=== PATIENT | female | born 1955 | race African-American/Black ===

== ENCOUNTER → 2016-08-01 | Outpatient (CLI) | payer MEDICARE, MEDICAID | LOC: OD 12:09 | PROVIDERS: ATTEND Family Medicine | DX: R05 Cough (principal) | CPT/HCPCS: 71020 ==

== ENCOUNTER → 2016-08-17 | Outpatient (CLI) | payer MEDICARE, MEDICAID | LOC: OD 12:31 | PROVIDERS: ATTEND Nurse Practitioner Acute Care | DX: R09.89 Other specified symptoms and signs involving the circulatory and respiratory systems (principal) | CPT/HCPCS: 71020 ==

== ENCOUNTER 2016-08-28 08:33 | Day surgery (SDC) | payer MEDICARE, MEDICAID ==
[~2016-08-28 08:33] MED LIST: PROPOFOL INJ 200 MG/20 ML VIAL IV ONE
[2016-08-28 10:33] VITALS: BP 138/78
--- NOTE | 2016-08-28 12:57 | Operative Report ---
Operative Report DATE OF SURGERY: 08/28/16 Operative Report: The risks, benefits and alternatives of the procedure including risks of bleeding, perforation requiring surgery are explained to the patient detail and informed consent is obtained. Patient is brought back to the endoscopy suite. Patient is placed in a left lateral decubital position. A timeout is called. Propofol medication is administered. A rectal examination was done which did not reveal any masses, tears or fissures. An Olympus videoscope was inserted into the patient's rectum. The scope was then carefully advanced all the way to the cecum. The cecum as identified by the usual anatomical landmarks including the ileocecal valve as well as the appendiceal office. Photodocumentation was obtained. Prep is good. The scope was then sequentially pulled back via the various segments of the colon including the ascending colon, hepatic flexure, transverse colon, splenic flexure, descending colon and finally into the rectosigmoid portions of the colon. Retroflexion maneuvers performed. PREOPERATIVE DIAGNOSIS: Heme-positive stools. Change of bowel habits POSTOPERATIVE DIAGNOSIS: Mild right-sided inflammation status post biopsy. Internal hemorrhoids OPERATION: Colonoscopy with biopsy SURGEON: BARBER SHANKS ANESTHESIA: LMAC TISSUE REMOVED OR ALTERED: Right-sided specimens obtained to rule out for lymphocytic, endoscopic, collagenous colitis. COMPLICATIONS: None. ESTIMATED BLOOD LOSS: none. INTRAOPERATIVE FINDINGS: Described above. No evidence of AVMs, diverticulosis. PROCEDURE: Patient tolerated procedure well. No immediate postprocedure complications are noted. Patient is discharged in good condition. Discharge date 08/28/2016. Discharge diet: Regular. Discharge activity: Regular. Patient is instructed to call the office or proceed to the emergency room if there are any postprocedure issues. Patient does have a 2-3 week follow-up to discuss findings. Once biopsies are available I'll call the patient to update her.
--- NOTE | 2016-08-28 12:57 | Operative Report ---
Operative Report DATE OF SURGERY: 08/28/16 PREOPERATIVE DIAGNOSIS: Heme-positive stools. Change of bowel habits POSTOPERATIVE DIAGNOSIS: Mild right-sided inflammation status post biopsy. Internal hemorrhoids OPERATION: Colonoscopy with biopsy SURGEON: BARBER SHANKS ANESTHESIA: LMAC TISSUE REMOVED OR ALTERED: Right-sided specimens obtained to rule out for lymphocytic, endoscopic, collagenous colitis. ESTIMATED BLOOD LOSS: none. INTRAOPERATIVE FINDINGS: Described above. No evidence of AVMs, diverticulosis.
== END 2016-08-28 10:30 | disposition home or self-care (01) ==
LOC: END 08:33
PROVIDERS: ATTEND Internal Medicine Gastroenterology
PROC: 0DBF8ZX Excision of Right Large Intestine, Via Natural or Artificial Opening Endoscopic, Diagnostic (ICD-10-PCS; principal; 2016-08-28 10:00)
DX: R19.5 Other fecal abnormalities (principal); E11.9 Type 2 diabetes mellitus without complications; I10 Essential (primary) hypertension; K52.9 Noninfective gastroenteritis and colitis, unspecified; Z88.5 Allergy status to narcotic agent; Z79.899 Other long term (current) drug therapy; Z79.52 Long term (current) use of systemic steroids; Z87.891 Personal history of nicotine dependence
CPT/HCPCS: 45380; 88305 ×2; J2704; 810

== ENCOUNTER → 2016-10-20 | Outpatient (CLI) | payer MEDICAID, MEDICARE | LOC: RAD 08:41 | PROVIDERS: ATTEND Surgery | DX: R10.84 Generalized abdominal pain (principal); Z87.11 Personal history of peptic ulcer disease | CPT/HCPCS: 74249 ==

== ENCOUNTER 2017-03-13 05:25 | Day surgery (SDC) | payer MEDICARE ==
--- NOTE | 2017-03-06 11:19 | RADIOLOGY REPORT (SQ) ---
EXAM DESCRIPTION: CHEST PA/LATERAL COMPLETED DATE/TIME: 03/06/2017 11:07 am REASON FOR STUDY: PRE-OP COMPARISON: 08/17/2016 NUMBER OF VIEWS: Two view. TECHNIQUE: Frontal and lateral radiographic views of the chest acquired. LIMITATIONS: None. FINDINGS: LUNGS AND PLEURA: No opacities, masses or pneumothorax. No pleural effusion. MEDIASTINUM AND HILAR STRUCTURES: No masses or contour abnormalities. HEART AND VASCULATURE: Heart normal size. No evidence for failure. BONY STRUCTURES: No acute findings. HARDWARE: None. OTHER: No other significant finding. IMPRESSION: NO SIGNIFICANT RADIOGRAPHIC FINDING IN THE CHEST. TECHNICAL DOCUMENTATION: JOB ID: [id number] [employer]- All Rights Reserved
[2017-03-06 11:20] LABS: APPEARANCE,URINE SLIGHTLY-CLOUDY; BILIRUBIN,URINE NEGATIVE (NEGATIVE); GLUCOSE, URINE NEGATIVE (NEGATIVE); KETONES,URINE TRACE mg/dL (NEGATIVE); LEUKOCYTE ESTERASE,URINE NEGATIVE (NEGATIVE); NITRITE,URINE NEGATIVE (NEGATIVE); PROTEIN,URINE 30 mg/dL (NEGATIVE); URINE SPECIFIC GRAVITY 1.024; UROBILINOGEN,URINE NEGATIVE mg/dL (<2.0)
[2017-03-06 11:22] LABS: HEMATOCRIT 36.6 % (36.0-47.0); HEMOGLOBIN 11.7 g/dL (12.0-15.5); HGB HCT DIFFERENCE -1.5; MEAN CORPUSCULAR HEMOGLOBIN 28.4 pg (27.0-33.4); MEAN CORPUSCULAR VOLUME 89 fl (80-97); RED BLOOD COUNT 4.13 10^6/uL (3.72-5.28); RED CELL DISTRIBUTION WIDTH 20.4 % (11.5-14.0)
[2017-03-06 11:28] LABS: PROTHROMBIN TIME 11.9 SEC (11.4-15.4)
[2017-03-06 11:29] LABS: PARTIAL THROMBOPLASTIN TIME 27.9 SEC (23.5-35.8)
[2017-03-06 11:44] LABS: ALANINE AMINOTRANSFERASE 30 U/L (9-52); ALKALINE PHOSPHATASE 95 U/L (38-126); ANION GAP 7 (5-19); ASPARTATE AMINO TRANSFERASE 44 U/L (14-36); BILIRUBIN,DIRECT 0.4 mg/dL (0.0-0.4); BILIRUBIN,TOTAL 0.5 mg/dL (0.2-1.3); BLOOD UREA NITROGEN 8 mg/dL (7-20); CALCIUM 9.5 mg/dL (8.4-10.2); CARBON DIOXIDE 29 mmol/L (22-30); CHLORIDE 108 mmol/L (98-107); CREATININE RESULT 0.69 mg/dL (0.52-1.25); GLUCOSE 78 mg/dL (75-110); POTASSIUM 3.6 mmol/L (3.6-5.0); TOTAL PROTEIN 6.9 g/dL (6.3-8.2)
[2017-03-06 13:14] LABS: ANISOCYTOSIS 2+; BASOPHILS % (MANUAL) 0 % (0-2); EOSINOPHILS % (MANUAL) 1 % (0-6); HYPOCHROMASIA 2+; LYMPHOCYTES % (MANUAL) 46 % (13-45); OVALOCYTES 2+; POIKILOCYTOSIS 2+; POLYCHROMASIA SLIGHT; TOTAL CELLS COUNTED 100
--- NOTE | 2017-03-06 21:05 | EKG REPORT ---
SEVERITY:- NORMAL ECG - SINUS RHYTHM : Confirmed by: Shelley Vargas 06-Mar-2017 21:04:52
[~2017-03-13 05:25] MED LIST changes: +CEFAZOLIN 2 GM/D5W RTU 2 GM/50 ML RTUPB IV PRN; +LACTATED RINGERS 1000 ML IV PRN; +LIDOCAINE 0.5% INJ-PF (5 MG/ML) 50 ML SDV SUBCUT PRN; -PROPOFOL INJ 200 MG/20 ML VIAL IV ONE
[2017-03-13] MEDS ORDERED: BUPIVACAINE HCL 0.5 % INJ/PF 30 ML SDV ONE (06:45)
[2017-03-13] MEDS ORDERED: MIDAZOLAM 2 MG/2 ML INJ ONE (06:48)
[2017-03-13] MEDS ORDERED: FENTANYL CITRATE INJ/PF 250 MCG/5 ML AMPULE ONE (06:48)
[2017-03-13] MEDS ORDERED: PROPOFOL INJ 200 MG/20 ML VIAL IV ONE (06:49)
[2017-03-13] MEDS ORDERED: ALBUTEROL SULFATE 0.083% NEB 2.5 MG/3 ML AMPUL NEB ONE (07:14)
[2017-03-13] MEDS ORDERED: LIDOCAINE 1% INJ-PF (10 MG/ML) 30 ML SDV ONE (07:21)
[2017-03-13] MEDS ORDERED: MORPHINE SULFATE 10 MG/ML INJ ONE (07:28)
[2017-03-13] MEDS ORDERED: FENTANYL CITRATE INJ/PF 100 MCG/2 ML AMPUL IV PRN ×3 (08:09)
[2017-03-13] MEDS ORDERED: ONDANSETRON HCL INJ/PF 4 MG/2 ML SDV IV PRN (08:40)
[2017-03-13] MEDS ORDERED: MORPHINE SULFATE 10 MG/ML INJ IV PRN (08:40)
--- NOTE | 2017-03-13 08:40 | PDOC DISCHARGE SUMMARY ---
Discharge Summary (SDC) - Discharge Final Diagnosis: Right carpal tunnel syndrome Right cubital tunnel syndrome Date of Surgery: 03/13/17 Discharge Date: 03/13/17 Condition: Good Treatment or Instructions: Schedule Follow Up w/ Dr. Simon Cotto @ [facility] for Surgery to be seen in 10-14 days or as scheduled [place]: [place]: [place]: May remove dressing on postop day #3, keep incision covered and dry. Ice and elevate May begin finger range of motion attempting to make full fist. Stool softener of choice when on pain medication. Prescriptions: Oxycodone HCl 5 mg PO Q6 PRN #30 tablet PRN Reason: Referrals: ASHELY BOOGIE MD [Primary Care Provider] - Discharge Diet: As Tolerated Respiratory Treatments at Home: Deep Breathing/Coughing, Incentive Spirometer Discharge Activity: No Lifting Over 10 Pounds, No Lifting/Push/Pulling Report the Following to Your Physician Immediately: Fever over 101 Degrees, Unusual Bleeding, Redness, Swelling, Warmth, Increased Soreness
--- NOTE | 2017-03-13 08:40 | Operative Report ---
Operative Report DATE OF SURGERY: 03/13/17 PREOPERATIVE DIAGNOSIS: Right Carpal/Cubital Tunnel Synrome POSTOPERATIVE DIAGNOSIS: Same OPERATION: Endoscopic Right Carpal Tunnel Release. Right In Situ Cubital Tunnel Release SURGEON: ARDEN ELIZONDO ANESTHESIA: GA COMPLICATIONS: None ESTIMATED BLOOD LOSS: Minimal PROCEDURE: Indication for above procedure: 61-year-old female with history of numbness and tingling the right upper extremity. Patient was seen at my office which point we discussed findings on neurodiagnostic testing and treatment options. Patient attempted conservative measures without resolution of her symptoms. At that point joint decision was made to proceed with operative intervention. Risks and benefits were explained patient verbalized understanding consented for the procedure. Procedure In Detail: Procedure In Detail: Patient was seen and evaluated in the preoperative holding area. The RIGHT upper extremity was initialized and marked. Patient received 2g of Ancef IV for bacterial prophylaxis. Patient was taken back to the operative room where transferred to the operative table and placed under general anesthesia. Once they were adequately anesthetized a nonsterile tourniquet was placed on the upper extremity. A surgical team debriefing was performed ensuring all instrumentation was available, the surgical procedure was discussed with possible concerns reviewed. The upper extremity was prepped with chlorhexidine and alcohol and draped in a sterile fashion. A timeout was done identifying correct patient, procedure and extremity everyone in attendance agree with this and verbalized no concerns. The extremity was exsanguinated the tourniquet was inflated to 250 mmHg. A transverse skin incision was made just proximal to the wrist flexion crease ulnar to the palmaris longus. Blunt dissection was performed down to the palmaris longus tendon which was retracted radially. Deep to the palmaris longus tendon was the volar carpal ligament this was incised identifying the median nerve deep. With the use of a Heath elevator any soft tissue/synovium was freed from the undersurface of the transverse carpal ligament. The hook of hamate was identified ulnarly. The ConMed cannulas were then introduced beginning with #1 progressing to a #3 gently dilating the carpal canal. I then introduced the scope within the cannula and identified transverse carpal ligament ensuring the median nerve was not visualized within the cannula. I triangulated distally with a 25-gauge needle identifying the distal aspect of the transverse carpal ligament, to ensure protection of the superficial palmar arch. The arthroscopic knife was used to incise the transverse carpal ligament under direct visualization with the arthroscopic camera. Any excess transverse fibers that remained after the first past were carefully released with a repeat pass. The median nerve was then directly visualized radially without disruption. Once this was completed I placed the #3 dilator and assured I got complete release of the transverse carpal ligament without residual compression. The median nerve was directly visualized and free of any overlying compression. I then turned my attention to release of the volar antebrachial fascia proximally. Once again a Heath was used to open the wound and I proceeded with cannula #1 to #3. The arthroscope was introduced into the cannula and under direct visualization the volar antebrachial fascia was released. Once this was complete I copiusly irrigated the wound with normal saline. Skin incision was closed with a running subcuticular 4-0 Monocryl reinforced with Dermabond and Steri-Strips. I then turned my attention the cubital tunnel release. A longitudinal skin incision was made centered over the cubital tunnel. Careful dissection was done through the overlying soft tissues any peripheral vasculature was carefully coagulated with bipolar cautery. The branches of the medial antebrachial cutaneous nerve were identified and protected throughout the entirety of the case. Once within the confines of the cubital tunnel the ulnar nerve was identified at the proximal aspect of the wound. At this level I carefully released a medial portion of the triceps and the medial intermuscular septum freeing the ulnar nerve proximally of any overlying soft tissue compression. At the level of Osbornes fascia there was significant compression w/ hourglass appearance of the ulnar nerve. The FCU aponeurosis between the 2 heads of the FCU muscle approximately 4cm of the fascia was released relieving any external compression from the ulnar nerve distally to the level of the first motor branch. I then freed up the nerve posteriorly ensuring there is no remaining soft tissue bands of tissue causing compression. During dissection of the nerve careful attention was directed at avoiding disruption of the ulnar nerve blood supply. Elbow range of motion was then done from full flexion to full extension with full flexion there was no evidence of anterior subluxation of the ulnar nerve from the groove. Thus I determined patient would not require anterior subcutaneous ulnar nerve transposition The tourniquet was then deflated. Compression was made to the wound for 2 minutes. I then identified any peripheral bleeding and carefully coagulated with bipolar cautery. The wound was then irrigated with normal saline. Subcutaneous tissues were closed with interrupted 3-0 Monocryl. Skin was closed a running subcuticular 4-0 Monocryl reinforced with Dermabond and Steri- Strips. Wounds dressed with 4 x 4's, ABD and soft bandage Sponge counts, instrument counts, needle counts counts were correct. Patient was then awoken from anesthesia. Transferred from the operating room table to the operating room stretcher. There was no intraoperative complications patient tolerated procedure well stable to PACU. Postoperative plan: Patient will follow-up in the office as scheduled which point we will proceed with wound check. She may begin gentle range of motion exercises but avoid any heavy lifting at her first postoperative appointment.
[2017-03-13] MEDS: FENTANYL CITRATE INJ/PF 100 MCG/2 ML AMPUL ONE ×4 (08:49→09:06)
[2017-03-13 11:24] VITALS: BP 149/81
[2017-03-13] MEDS ORDERED: ONDANSETRON HCL INJ/PF 4 MG/2 ML SDV ONE (13:26)
[2017-03-13] MEDS ORDERED: SUCCINYLCHOLINE CHLORIDE INJ 200 MG/10 ML VIAL ONE (13:26)
[2017-03-13] MEDS ORDERED: DEXAMETHASONE SOD PHOSPHATE INJ 4 MG/1 ML VIAL ONE (13:26)
[2017-03-13] MEDS ORDERED: GLYCOPYRROLATE INJ 0.4 MG/2 ML VIAL ONE (13:26)
[2017-03-13] MEDS ORDERED: PHENYLEPHRINE HCL INJ/PF 10 MG/1 ML SDV ONE (13:26)
[2017-03-13] MEDS ORDERED: LIDOCAINE 2% INJ-PF (20 MG/ML) 10 ML AMPUL ONE (13:26)
== END 2017-03-13 11:00 | disposition home or self-care (01) ==
LOC: OROUT 05:25
PROVIDERS: ATTEND Orthopaedic Surgery
PROC: 01N54ZZ Release Median Nerve, Percutaneous Endoscopic Approach (ICD-10-PCS; principal; 2017-03-13 07:30)
PROC: 01N40ZZ Release Ulnar Nerve, Open Approach (ICD-10-PCS; 2017-03-13 07:30)
DX: G56.01 Carpal tunnel syndrome, right upper limb (principal); G56.21 Lesion of ulnar nerve, right upper limb; F17.210 Nicotine dependence, cigarettes, uncomplicated; I10 Essential (primary) hypertension; M19.90 Unspecified osteoarthritis, unspecified site; Z79.01 Long term (current) use of anticoagulants; Z88.5 Allergy status to narcotic agent; Z79.899 Other long term (current) drug therapy; Z79.1 Long term (current) use of non-steroidal anti-inflammatories (NSAID); Z86.79 Personal history of other diseases of the circulatory system; Z86.39 Personal history of other endocrine, nutritional and metabolic disease
CPT/HCPCS: 93005; 36415; 82962; 85025; 85610; 85730; 80076; 80048; 81001; 71020; 93010; 29848; 64718; J2250; J1100; J3010 ×2; J2270; J2370; J0330; J2405; J2704; J3490; A9270; J0690; 1810

== ENCOUNTER 2018-07-23 09:38 | Emergency (ER) | payer MEDICARE, MEDICAID ==
--- NOTE | 2018-07-23 09:56 | ER Document Report ---
ED Medical Screen (RME) - General Chief Complaint: Fall Injury Stated Complaint: FALL Time Seen by Provider: 07/23/18 09:53 Notes: RAPID MEDICAL EVALUATION DISCLOSURE I have seen this patient as part of a Rapid Medical Evaluation and, if applic able, placed any initially appropriate orders. The patient will be seen and fully evaluated, including a full history and physical exam, by a provider (in Main ED or Fast Track) when a room becomes available. 63-year-old female here with complaints of frequent right-sided headaches ongoing for the past several weeks. She has also had generalized weakness, "legs giving out on me", trembling of her whole body, and frequent falls over the past 1 month. She reports having fallen down 3 times in the past 1 month. Her last fall was yesterday. She does not know why she keeps falling. She does not have any syncope that leads to the falls. She denies any chest pain shortness of breath. From yesterday's fall, she does complain of some left chest wall pain, left hip pain, left knee pain. EXAM Mild left lateral chest wall TTP Mild left lateral hip TTP No appreciable left knee TTP Strength 5/5 with intact sensation all extremities FNF cerebellar intact TRAVEL OUTSIDE OF THE [place] IN LAST 30 DAYS: No - Related Data Allergies/Adverse Reactions: acetaminophen [From Ultracet] Allergy (Severe, Verified 03/12/17 08:24) Hives codeine phosphate [From Codeine Phosphate Soluble] Allergy (Severe, Verified 03/06/17 09:17) Respiratory distress hydrocodone [Hydrocodone] Allergy (Severe, Verified 03/06/17 09:17) Hives hydromorphone HCl [From Dilaudid] Allergy (Severe, Verified 03/06/17 09:17) Anaphylaxis oxycodone HCl [From Percocet] Allergy (Severe, Verified 03/06/17 09:17) Hives tramadol [From Ultracet] Allergy (Severe, Verified 03/12/17 08:24) Hives tramadol HCl [From Ultram] Allergy (Severe, Verified 03/06/17 09:17) Hives valdecoxib [From Bextra] Allergy (Severe, Verified 03/06/17 09:17) Hives nalbuphine HCl [From Nubain] Allergy (Intermediate, Verified 03/06/17 09:17) Hives bee stings Allergy (Severe, Uncoded 03/12/17 08:24) Hives Past Medical History - Past Medical History Cardiac Medical History: Denies: Hx Coronary Artery Disease, Hx Heart Attack, Hx Hypertension, Hx Pulmonary Embolism Pulmonary Medical History: Denies: Hx Asthma, Hx Bronchitis, Hx COPD - DOES NOT HAVE ANYMORE, Hx Pneumonia, Hx Respiratory Failure, Hx Sleep Apnea, Hx Tuberculosis Neurological Medical History: Reports: Hx Migraine. Denies: Hx Cerebrovascular Accident, Hx Seizures Endocrine Medical History: Denies: Hx Diabetes Mellitus Type 2, Hx Graves' Disease, Hx Hyperthyroidism, Hx Hypothyroidism Malignancy Medical History: Denies: Hx Lung Cancer GI Medical History: Reports: Hx Gastroesophageal Reflux Disease, Hx Hepatitis, Hx Hiatal Hernia, Hx Ulcer. Denies: Hx Crohn's Disease, Hx Irritable Bowel, Hx Liver Failure, Hx Pancreatitis Musculoskeltal Medical History: Reports Hx Arthritis - RHEUMATOID, Denies Hx Fibromyalgia, Denies Hx Muscular Dystrophy Psychiatric Medical History: Reports: Hx Depression Denies: Hx Bipolar Disorder, Hx Post Traumatic Stress Disorder, Hx Schizophrenia Traumatic Medical History: Denies: Hx Fractures Infectious Medical History: Reports: Hx Hepatitis Past Surgical History: Reports: Hx Abdominal Surgery - gastric bypass and then reversal, feeding tube placement x2, Hx Cholecystectomy, Hx Gastric Bypass Surgery - reversal of gastric bypass, Hx Hysterectomy, Hx Orthopedic Surgery - bilat knee, Hx Tonsillectomy, Hx Tubal Ligation. Denies: Hx Bowel Surgery, Hx Section, Hx Colostomy, Hx Coronary Artery Bypass Graft, Hx Herniorrhaphy, Hx Mastectomy, Hx Pacemaker - Immunizations Hx Diphtheria, Pertussis, Tetanus Vaccination: - Unsure Physical Exam - Vital signs Vitals: Temp Pulse Resp BP Pulse Ox 99.2 F 97 18 127/71 H 98 07/23/18 09:46 07/23/18 09:46 07/23/18 09:46 07/23/18 09:46 07/23/18 09:46 Course - Vital Signs Vital signs: Temp Pulse Resp BP Pulse Ox 99.2 F 97 18 127/71 H 98 07/23/18 09:46 07/23/18 09:46 07/23/18 09:46 07/23/18 09:46 07/23/18 09:46 Doctor's Discharge - Discharge Referrals: CANDICE ZUÑIGA PA-C [Primary Care Provider] - Follow up as needed
--- NOTE | 2018-07-23 10:17 | RADIOLOGY REPORT (SQ) ---
EXAM DESCRIPTION: CT HEAD WITHOUT COMPLETED DATE/TIME: 07/23/2018 10:06 am REASON FOR STUDY: frequent falls COMPARISON: 05/08/2013. TECHNIQUE: Axial images acquired through the brain without intravenous contrast. Images reviewed wi th bone, brain and subdural windows. Additional sagittal and coronal reconstructions were generated. Images stored on PACS. All CT scanners at this facility use dose modulation, iterative reconstruction, and/or weight based d osing when appropriate to reduce radiation dose to as low as reasonably achievable (ALARA). [facility]: Dose Right [facility]: CareDose [facility]: Dose Right [facility]: Teradose 4D [facility]: [place] RADIATION DOSE: CT Rad equipment meets quality standard of care and radiation dose reduction techniq ues were employed. CTDIvol: 53.2 mGy. DLP: 1044 mGy-cm. mGy. LIMITATIONS: None. FINDINGS: VENTRICLES: Normal size and contour. CEREBRUM: No masses. No hemorrhage. No midline shift. No evidence for acute infarction. Normal gra y/white matter differentiation. No areas of low density in the white matter. CEREBELLUM: No masses. No hemorrhage. No alteration of density. No evidence for acute infarction. EXTRAAXIAL SPACES: No fluid collections. No masses. ORBITS AND GLOBE: No intra- or extraconal masses. Normal contour of globe without masses. CALVARIUM: No fracture. PARANASAL SINUSES: No fluid or mucosal thickening. SOFT TISSUES: No mass or hematoma. OTHER: No other significant finding. IMPRESSION: NORMAL BRAIN CT WITHOUT CONTRAST. EVIDENCE OF ACUTE STROKE: NO. COMMENT: Quality ID # [id number]: Final reports with documentation of one or more dose reduction techniques (e.g., Automated exposure control, adjustment of the mA and/or kV according to patient size, use of iterative reconstruction technique) TECHNICAL DOCUMENTATION: JOB ID: [id number] [employer]- All Rights Reserved Reading location - IP/workstation name: [email or web address]
--- NOTE | 2018-07-23 10:24 | RADIOLOGY REPORT (SQ) ---
EXAM DESCRIPTION: HIP LEFT AP/LATERAL COMPLETED DATE/TIME: 07/23/2018 10:11 am REASON FOR STUDY: fall, L hip pain COMPARISON: None. NUMBER OF VIEWS: Two views. TECHNIQUE: AP pelvis and additional frog-leg view of the left hip. LIMITATIONS: None. FINDINGS: MINERALIZATION: Normal. LEFT HIP: No fracture or dislocation. No worrisome bone lesions. RIGHT HIP: No fracture or dislocation. No worrisome bone lesions. PUBIS AND ISCHIUM: No fracture. PELVIS: No fracture. SACRUM: No fracture or dislocation. No worrisome bone lesions. LOWER LUMBAR SPINE: No fracture or dislocation. No worrisome bone lesions. No significant disc disea se. SOFT TISSUES: No findings. OTHER: No other significant finding. IMPRESSION: NEGATIVE STUDY OF THE LEFT HIP AND PELVIS. NO RADIOGRAPHIC EVIDENCE OF ACUTE INJURY. TECHNICAL DOCUMENTATION: JOB ID: [id number] [employer]- All Rights Reserved Reading location - IP/workstation name: [email or web address]
--- NOTE | 2018-07-23 10:25 | RADIOLOGY REPORT (SQ) ---
EXAM DESCRIPTION: CHEST 2 VIEWS COMPLETED DATE/TIME: 07/23/2018 10:11 am REASON FOR STUDY: freq falls, L chest wall pain COMPARISON: 07/22/2015. EXAM PARAMETERS: NUMBER OF VIEWS: two views TECHNIQUE: Digital Frontal and Lateral radiographic views of the chest acquired. RADIATION DOSE: NA LIMITATIONS: none FINDINGS: LUNGS AND PLEURA: No opacities, masses or pneumothorax. No pleural effusion. MEDIASTINUM AND HILAR STRUCTURES: No masses or contour abnormalities. HEART AND VASCULAR STRUCTURES: Heart normal size. No evidence for failure. BONES: No acute findings. HARDWARE: Clips in the upper abdomen. OTHER: No other significant finding. IMPRESSION: NO ACUTE RADIOGRAPHIC FINDING IN THE CHEST. TECHNICAL DOCUMENTATION: JOB ID: [id number] [employer]- All Rights Reserved Reading location - IP/workstation name: [email or web address]
[2018-07-23 10:34] LABS: ABSOLUTE LYMPHOCYTES (AUTO) 2.6 10^3/uL (0.5-4.7); ABSOLUTE MONOCYTES (AUTO) 0.6 10^3/uL (0.1-1.4); BASOPHILS % (AUTO) 0.3 % (0-2); EOSINOPHILS % (AUTO) 0.7 % (0-6); HEMATOCRIT 32.9 % (36.0-47.0); HEMOGLOBIN 10.6 g/dL (12.0-15.5); LYMPHOCYTES % (AUTO) 42.3 % (13-45); MEAN CORPUSCULAR HEMOGLOBIN 26.4 pg (27.0-33.4); MEAN CORPUSCULAR HGB CONC 32.3 g/dL (32.0-36.0); MEAN CORPUSCULAR VOLUME 82 fl (80-97); MONOCYTES % (AUTO) 9.3 % (3-13); PLATELET COUNT 316 10^3/uL (150-450); RED BLOOD COUNT 4.02 10^6/uL (3.72-5.28); RED CELL DISTRIBUTION WIDTH 19.8 % (11.5-14.0); SEGMENTED NEUTROPHILS % (AUTO) 47.4 % (42-78); TOTAL CELLS COUNTED % (AUTO) 100 %; WHITE BLOOD COUNT 6.2 10^3/uL (4.0-10.5)
[2018-07-23] MEDS ORDERED: NORMAL SALINE 500 ML IV ONE (10:42)
[2018-07-23] MEDS ORDERED: ONDANSETRON HCL INJ/PF 4 MG/2 ML SDV IV ONE (10:43)
[2018-07-23] MEDS ORDERED: PROCHLORPERAZINE EDISYLATE INJ 10 MG/2 ML VIAL IV ONE (10:43)
[2018-07-23 10:51] LABS: APPEARANCE,URINE SLIGHTLY-CLOUDY; BILIRUBIN,URINE SMALL (NEGATIVE); GLUCOSE, URINE NEGATIVE (NEGATIVE); KETONES,URINE TRACE mg/dL (NEGATIVE); LEUKOCYTE ESTERASE,URINE TRACE (NEGATIVE); NITRITE,URINE NEGATIVE (NEGATIVE); PROTEIN,URINE 30 mg/dL (NEGATIVE); URINE SPECIFIC GRAVITY 1.028
[2018-07-23 10:56] LABS: ALANINE AMINOTRANSFERASE 11 U/L (9-52); ALKALINE PHOSPHATASE 102 U/L (38-126); ANION GAP 5 (5-19); ASPARTATE AMINO TRANSFERASE 39 U/L (14-36); BILIRUBIN,DIRECT 0.3 mg/dL (0.0-0.4); BILIRUBIN,TOTAL 0.4 mg/dL (0.2-1.3); BLOOD UREA NITROGEN 8 mg/dL (7-20); CALCIUM 9.6 mg/dL (8.4-10.2); CARBON DIOXIDE 26 mmol/L (22-30); CHLORIDE 112 mmol/L (98-107); GLUCOSE 48 mg/dL (75-110); POTASSIUM 4.3 mmol/L (3.6-5.0); SODIUM 143.3 mmol/L (137-145); TOTAL PROTEIN 7.3 g/dL (6.3-8.2)
[2018-07-23 11:00] LABS: COLOR,URINE DARK YELLOW
--- NOTE | 2018-07-23 12:59 | EKG REPORT ---
SEVERITY:- NORMAL ECG - SINUS RHYTHM : Confirmed by: Rk Mendoza MD 23-Jul-2018 12:58:30
--- NOTE | 2018-07-23 13:27 | ER Document Report ---
ED General - General Chief Complaint: Fall Injury Stated Complaint: FALL Time Seen by Provider: 07/23/18 09:53 TRAVEL OUTSIDE OF THE [place] IN LAST 30 DAYS: No - HPI Patient complains to provider of: Multiple falls multiple complaints Notes: Patient coming in for multiple falls and multiple complaints patient states a history of dizziness weakness states intermittent falls over the last month patient states apparently has fallen 3 times. Patient states last time she is falling was day prior to yesterday states that she was standing up felt her legs get weak and and did fall into the ground patient states that she hit her head. Patient also complains of a fall a few weeks prior stating again that her legs give out. Patient otherwise denies any new medications denies any fevers chills nausea vomiting diarrhea denies any recent travel denies any chest pain or abdominal pain. Patient is resting comfortably upon my evaluation. Patient states that she has had a history of GI bypass surgery with a reversal due to complications patient states ever since that time she has had multiple medical issues. Patient was seen by the triage provider whose note is provided below 63-year-old female here with complaints of frequent right-sided headaches ongoing for the past several weeks. She has also had generalized weakness, "legs giving out on me", trembling of her whole body, and frequent falls over the past 1 month. She reports having fallen down 3 times in the past 1 month. Her last fall was yesterday. She does not know why she keeps falling. She does not have any syncope that leads to the falls. She denies any chest pain shortness of breath. From yesterday's fall, she does complain of some left chest wall pain, left hip pain, left knee pain. - Related Data Allergies/Adverse Reactions: acetaminophen [From Ultracet] Allergy (Severe, Verified 03/12/17 08:24) Hives codeine phosphate [From Codeine Phosphate Soluble] Allergy (Severe, Verified 03/06/17 09:17) Respiratory distress hydrocodone [Hydrocodone] Allergy (Severe, Verified 03/06/17 09:17) Hives hydromorphone HCl [From Dilaudid] Allergy (Severe, Verified 03/06/17 09:17) Anaphylaxis oxycodone HCl [From Percocet] Allergy (Severe, Verified 03/06/17 09:17) Hives tramadol [From Ultracet] Allergy (Severe, Verified 03/12/17 08:24) Hives tramadol HCl [From Ultram] Allergy (Severe, Verified 03/06/17 09:17) Hives valdecoxib [From Bextra] Allergy (Severe, Verified 03/06/17 09:17) Hives nalbuphine HCl [From Nubain] Allergy (Intermediate, Verified 03/06/17 09:17) Hives bee stings Allergy (Severe, Uncoded 03/12/17 08:24) Hives Past Medical History - Social History Smoking Status: Current Every Day Smoker Chew tobacco use (# tins/day): No Drug Abuse: Marijuana Family History: Reviewed & Not Pertinent Patient has suicidal ideation: No Patient has homicidal ideation: No - Past Medical History Cardiac Medical History: Denies: Hx Coronary Artery Disease, Hx Heart Attack, Hx Hypertension, Hx Pulmonary Embolism Pulmonary Medical History: Denies: Hx Asthma, Hx Bronchitis, Hx COPD - DOES NOT HAVE ANYMORE, Hx Pneumonia, Hx Respiratory Failure, Hx Sleep Apnea, Hx Tuberculosis Neurological Medical History: Reports: Hx Migraine. Denies: Hx Cerebrovascular Accident, Hx Seizures Endocrine Medical History: Denies: Hx Diabetes Mellitus Type 2, Hx Graves' Disease, Hx Hyperthyroidism, Hx Hypothyroidism Renal/ Medical History: Denies: Hx Peritoneal Dialysis Malignancy Medical History: Denies: Hx Lung Cancer GI Medical History: Reports: Hx Gastroesophageal Reflux Disease, Hx Hepatitis, Hx Hiatal Hernia, Hx Ulcer. Denies: Hx Crohn's Disease, Hx Irritable Bowel, Hx Liver Failure, Hx Pancreatitis Musculoskeletal Medical History: Reports Hx Arthritis - RHEUMATOID, Denies Hx Fibromyalgia, Denies Hx Muscular Dystrophy Psychiatric Medical History: Reports: Hx Depression Denies: Hx Bipolar Disorder, Hx Post Traumatic Stress Disorder, Hx Schizophrenia Traumatic Medical History: Denies: Hx Fractures Infectious Medical History: Reports: Hx Hepatitis Past Surgical History: Reports: Hx Abdominal Surgery - gastric bypass and then reversal, feeding tube placement x2, Hx Cholecystectomy, Hx Gastric Bypass Surgery - reversal of gastric bypass, Hx Hysterectomy, Hx Orthopedic Surgery - bilat knee, Hx Tonsillectomy, Hx Tubal Ligation. Denies: Hx Bowel Surgery, Hx Section, Hx Colostomy, Hx Coronary Artery Bypass Graft, Hx Herni orrhaphy, Hx Mastectomy, Hx Pacemaker - Immunizations Hx Diphtheria, Pertussis, Tetanus Vaccination: - Unsure Hx Pneumococcal Vaccination: 07/16/14 Review of Systems - Review of Systems Constitutional: Weakness, Other - Multiple falls EENT: No symptoms reported Cardiovascular: No symptoms reported Respiratory: No symptoms reported Gastrointestinal: No symptoms reported Genitourinary: No symptoms reported Female Genitourinary: No symptoms reported Musculoskeletal: No symptoms reported Skin: No symptoms reported Hematologic/Lymphatic: No symptoms reported Neurological/Psychological: No symptoms reported -: Yes All other systems reviewed and negative Physical Exam - Vital signs Vitals: Temp Pulse Resp BP Pulse Ox 99.2 F 97 18 127/71 H 98 07/23/18 09:46 07/23/18 09:46 07/23/18 09:46 07/23/18 09:46 07/23/18 09:46 Interpretation: Normal - General General appearance: Appears well, Alert - HEENT Head: Normocephalic, Atraumatic Eyes: Normal Pupils: PERRL - Respiratory Respiratory status: No respiratory distress Chest status: Nontender Breath sounds: Normal Chest palpation: Normal - Cardiovascular Rhythm: Regular Heart sounds: Normal auscultation Murmur: No - Abdominal Inspection: Normal Distension: No distension Bowel sounds: Normal Tenderness: Nontender Organomegaly: No organomegaly - Back Back: Normal, Nontender - Extremities General upper extremity: Normal inspection, Nontender, Normal color, Normal ROM, Normal temperature General lower extremity: Normal inspection, Nontender, Normal color, Normal ROM, Normal temperature, Normal weight bearing. No: Michael's sign - Neurological Neuro grossly intact: Yes Cognition: Normal Orientation: AAOx4 [place] Coma Scale Eye Opening: Spontaneous [place] Coma Scale Verbal: Oriented Javier Coma Scale Motor: Obeys Commands Javier Coma Scale Total: 15 Speech: Normal Motor strength normal: LUE, RUE, LLE, RLE Sensory: Normal - Psychological Associated symptoms: Normal affect, Normal mood - Skin Skin Temperature: Warm Skin Moisture: Dry Skin Color: Normal Course - Re-evaluation Re-evalutation: 07/23/18 17:08 Laboratory studies showed hypoglycemia. Patient was arousable patient was given orange juice and a sandwich Accu-Chek was performed again showing a normal blood glucose. Possible episodes of hypoglycemia causing the patient's falling and did explain to the patient otherwise laboratory studies not show critical pathology x-rays not show any signs of fracture or acute traumatic findings patient will be discharged home follow-up with Dr. Agustina. Patient agrees with assessment and plan. Patient is to eat more frequent meals to help carry small pieces of candy on her at all times in case episodes happened to see if this will help decrease the number of episodes of falling - Vital Signs Vital signs: Temp Pulse Resp BP Pulse Ox 98.1 F 79 16 121/69 99 07/23/18 13:49 07/23/18 13:49 07/23/18 09:50 07/23/18 13:49 07/23/18 13:49 - Laboratory Result Diagrams: 07/23/18 10:23 07/23/18 10:23 Laboratory results interpreted by me: 07/23/18 07/23/18 07/23/18 10:23 10:23 10:30 Hgb 10.6 L Hct 32.9 L MCH 26.4 L RDW 19.8 H Chloride 112 H Glucose 48 L AST 39 H Urine Protein 30 H Urine Ketones TRACE H Urine Bilirubin SMALL H Urine Urobilinogen 4.0 H Ur Leukocyte Esterase TRACE H Urine Ascorbic Acid 20 H Discharge - Discharge Clinical Impression: Hypoglycemia Condition: Good Disposition: HOME, SELF-CARE Instructions: Hypoglycemia Diet ([facility]), Hypoglycemia ([facility]) Additional Instructions: Laboratory studies not show any acute abnormalities except for a low blood sugar. This was corrected after administration of juice and a meal. Recommend following up with your primary care physician. Possible bouts of low blood sugar could be the reason why you are having multiple falls. Your primary care physician can further evaluate this. Please eat small meals throughout the day or have small pieces of candy really available if you feel lightheaded or dizzy. Return to ER if any symptoms worsen or for any other complaints. Referrals: CANDICE ZUÑIGA PA-C [NO LOCAL MD] - Follow up as needed
[2018-07-23 13:52] VITALS: BP 121/69
== END 2018-07-23 13:51 | disposition home or self-care (01) ==
LOC: ER 09:38
DX: R73.9 Hyperglycemia, unspecified (principal); R42 Dizziness and giddiness; R53.1 Weakness; W19.XXXA Unspecified fall, initial encounter; R29.6 Repeated falls; F17.200 Nicotine dependence, unspecified, uncomplicated
CPT/HCPCS: 93005; 99285; 96374; 96375; 36415; 82962; 83735; 85025; 80053; 81001; 84484; 71046; 73502; 70450; 93010; J0780; J2405; J7040

== ENCOUNTER 2019-03-27 21:13 | Emergency (ER) | payer MEDICARE, MEDICAID ==
--- NOTE | 2019-03-27 22:44 | RADIOLOGY REPORT (SQ) ---
XR ANKLE 3 OR MORE VIEWS CLINICAL STATEMENT: bone tenderness COMPARISON: None FINDINGS: Bony alignment is anatomic. There is no fracture or dislocation. The soft tissues are unremarkable. Mild ankle joint degenerative changes. No significant soft tissue swelling. Mild plantar and retrocalcaneal spurring. IMPRESSION: No fracture. Mild degenerative changes.
--- NOTE | 2019-03-28 01:25 | ER Document Report ---
ED General - General Chief Complaint: Ankle Pain Stated Complaint: ANKLE PAIN Time Seen by Provider: 03/28/19 01:09 TRAVEL OUTSIDE OF THE [place] IN LAST 30 DAYS: No - HPI Notes: Patient is a 63-year-old female who presents to the emergency department for evaluation of an injury to her left ankle. Evidently she contused her lateral malleolus of her left ankle against a rocking chair. She went about her day. She states later on in the day she developed increased pain and swelling in that area. She states now she absolutely cannot bear weight without severe pain. She denies any fevers or chills. No nausea or vomiting. No history of injury to the ankle in the past. No other acute complaints or concerns. - Related Data Allergies/Adverse Reactions: acetaminophen [From Ultracet] Allergy (Severe, Verified 03/12/17 08:24) Hives codeine phosphate [From Codeine Phosphate Soluble] Allergy (Severe, Verified 03/06/17 09:17) Respiratory distress hydrocodone [Hydrocodone] Allergy (Severe, Verified 03/06/17 09:17) Hives hydromorphone HCl [From Dilaudid] Allergy (Severe, Verified 03/06/17 09:17) Anaphylaxis oxycodone HCl [From Percocet] Allergy (Severe, Verified 03/06/17 09:17) Hives tramadol [From Ultracet] Allergy (Severe, Verified 03/12/17 08:24) Hives tramadol HCl [From Ultram] Allergy (Severe, Verified 03/06/17 09:17) Hives valdecoxib [From Bextra] Allergy (Severe, Verified 03/06/17 09:17) Hives nalbuphine HCl [From Nubain] Allergy (Intermediate, Verified 03/06/17 09:17) Hives bee stings Allergy (Severe, Uncoded 03/12/17 08:24) Hives Past Medical History - General Information source: Patient - Social History Smoking Status: Never Smoker Family History: Reviewed & Not Pertinent - Past Medical History Cardiac Medical History: Denies: Hx Coronary Artery Disease, Hx Heart Attack, Hx Hypertension, Hx Pulmonary Embolism Pulmonary Medical History: Denies: Hx Asthma, Hx Bronchitis, Hx COPD - DOES NOT HAVE ANYMORE, Hx Pneumonia, Hx Respiratory Failure, Hx Sleep Apnea, Hx Tuberculosis Neurological Medical History: Reports: Hx Migraine. Denies: Hx Cerebrovascular Accident, Hx Seizures Endocrine Medical History: Denies: Hx Diabetes Mellitus Type 2, Hx Graves' Disease, Hx Hyperthyroidism, Hx Hypothyroidism Renal/ Medical History: Denies: Hx Peritoneal Dialysis Malignancy Medical History: Denies: Hx Lung Cancer GI Medical History: Reports: Hx Gastroesophageal Reflux Disease, Hx Hepatitis, Hx Hiatal Hernia, Hx Ulcer. Denies: Hx Crohn's Disease, Hx Irritable Bowel, Hx Liver Failure, Hx Pancreatitis Musculoskeletal Medical History: Reports Hx Arthritis - RHEUMATOID, Denies Hx Fibromyalgia, Denies Hx Muscular Dystrophy, Reports Hx Systemic Lupus Erythematosus Psychiatric Medical History: Reports: Hx Depression Denies: Hx Bipolar Disorder, Hx Post Traumatic Stress Disorder, Hx Schizophrenia Traumatic Medical History: Denies: Hx Fractures Infectious Medical History: Reports: Hx Hepatitis Past Surgical History: Reports: Hx Abdominal Surgery - gastric bypass and then reversal, feeding tube placement x2, Hx Cholecystectomy, Hx Gastric Bypass Surgery - reversal of gastric bypass, Hx Hysterectomy, Hx Orthopedic Surgery - bilat knee, Hx Tonsillectomy, Hx Tubal Ligation. Denies: Hx Bowel Surgery, Hx Section, Hx Colostomy, Hx Coronary Artery Bypass Graft, Hx Her niorrhaphy, Hx Mastectomy, Hx Pacemaker - Immunizations Hx Diphtheria, Pertussis, Tetanus Vaccination: - Unsure Hx Pneumococcal Vaccination: 07/16/14 Review of Systems - Review of Systems Constitutional: No symptoms reported EENT: No symptoms reported Cardiovascular: No symptoms reported Respiratory: No symptoms reported Gastrointestinal: No symptoms reported Female Genitourinary: No symptoms reported Musculoskeletal: See HPI Skin: No symptoms reported Neurological/Psychological: No symptoms reported Physical Exam - Vital signs Vitals: Temp Pulse Resp BP Pulse Ox 99.3 F 85 18 131/82 H 100 03/27/19 21:19 03/27/19 21:19 03/27/19 21:19 03/27/19 21:19 03/27/19 21:19 - Notes Notes: Is a pleasant 63-year-old female who appears stated age in no acute distress. Head is normocephalic and atraumatic. Heart is regular rate and rhythm. Lungs are clear to oscillation bilaterally. Examination of the left lower extremity yields a mild amount of edema noted over the left lateral malleolus. She is tender to palpation throughout the lateral malleolus. No medial malleolus tenderness to palpation. No tenderness over the fibular head of the fifth metatarsal head. No posterior calf tenderness. Extremities without cyanosis or clubbing. Skin is warm and dry. Course - Re-evaluation Re-evalutation: 03/28/19 01:23 Patient presents to the emergency department for evaluation after a left ankle injury. Her pain began after a contusion to her left lateral malleolus. She has no obvious fracture on x-ray. No signs of skin break or clear infection. We will go ahead and give her crutches. We will send her home with prescription strength anti-inflammatories. She is to follow-up with primary care or orthopedics, return to the ED with worsening or new concerning symptoms of any sort. - Vital Signs Vital signs: Temp Pulse Resp BP Pulse Ox 99.3 F 85 18 131/82 H 100 03/27/19 21:19 03/27/19 21:19 03/27/19 21:19 03/27/19 21:19 03/27/19 21:19 Discharge - Discharge Clinical Impression: Contusion of left ankle Condition: Stable Disposition: HOME, SELF-CARE Instructions: Contusion ([facility]) Additional Instructions: Crutches as needed for ambulation. Take ibuprofen as directed, with food. Follow-up with primary care or orthopedist next week. Return to the ED with worsening or new concerning symptoms of any sort.
[2019-03-28 01:31] VITALS: BP 152/78
== END 2019-03-28 01:52 | disposition home or self-care (01) ==
LOC: ER 21:13
DX: S90.02XA Contusion of left ankle, initial encounter (principal); W22.09XA Striking against other stationary object, initial encounter; Z88.6 Allergy status to analgesic agent
CPT/HCPCS: 99283

== ENCOUNTER → 2019-07-23 | Outpatient (CLI) | payer MEDICARE, OTHER ==
--- NOTE | 2019-07-23 14:59 | RADIOLOGY REPORT (SQ) ---
EXAM DESCRIPTION: RIBS LEFT W/PA CHEST COMPLETED DATE/TIME: 07/23/2019 10:03 am REASON FOR STUDY: PLEURODYNIA R07.81 PLEURODYNIA COMPARISON: None. TECHNIQUE: Frontal view of the chest and additional views of the left ribs acquired. NUMBER OF VIEWS: Five view. LIMITATIONS: None. FINDINGS: FRONTAL CXR: No pneumothorax. No pleural effusion. No atelectasis or infiltrates. RIBS: No displaced rib fractures. No lytic or blastic bony lesions. OTHER: No other significant finding. IMPRESSION: NO PNEUMOTHORAX. NO DISPLACED RIB FRACTURES. COMMENT: SITE OF TRAUMA/COMPLAINT MARKED/STAMP COMPLETED: YES. TECHNICAL DOCUMENTATION: JOB ID: [id number] [employer]- All Rights Reserved Reading location - IP/workstation name: [email or web address]
== END ==
LOC: OD 09:46
PROVIDERS: ATTEND Nurse Practitioner Family
DX: R07.81 Pleurodynia (principal)

== ENCOUNTER → 2019-07-29 | Outpatient (CLI) | payer MEDICAID, MEDICARE ==
--- NOTE | 2019-07-30 11:21 | WOMENS IMAGING REPORT ---
EXAM DESCRIPTION: BILAT SCREENING MAMMO W/CAD COMPLETED DATE/TIME: 07/29/2019 1:56 pm REASON FOR STUDY: Z12.31 SCREENING MAMMO Z12.31 ENCNTR SCREEN MAMMOGRAM FOR MALIGNANT NEOPLASM OF B RE COMPARISON: 2013 EXAM PARAMETERS: Standard craniocaudal and mediolateral oblique views of each breast recorded using digital acquisition. Read with the assistance of CAD. .[facility] - [employer] Work[employer] Version 9.2 LIMITATIONS: None. FINDINGS: No suspicious masses, suspicious calcifications or architectural distortion. No areas of c oncern. IMPRESSION: Negative MAMMOGRAM. BIRADS 1 BREAST DENSITY: b. There are scattered areas of fibroglandular density. BIRAD: ASSESSMENT: 1 NEGATIVE RECOMMENDATION: ROUTINE SCREENING Please continue yearly bilateral screening mammography/tomosynthesis in July 2020 COMMENT: The patient has been notified of the results by letter per [place] requirements. Additional no tification policies are in place for contacting patient with suspicious or incomplete findings. Quality ID #[id number]: The [employer] recommends an annual screening mammogram for women aged 40 years or over. This facility utilizes a reminder system to ensure that all patients receive reminder letters, and/or direct phone calls for appointments. This includes reminders for routine scr eening mammograms, diagnostic mammograms, or other Breast Imaging Interventions when appropriate. Th is patient will be placed in the appropriate reminder system. TECHNICAL DOCUMENTATION: FINDING NUMBER: (1) ASSESSMENT: (1) JOB ID: [id number] [employer]- All Rights Reserved Reading location - IP/workstation name: [email or web address]
== END ==
LOC: WI 13:05
PROVIDERS: ATTEND Nurse Practitioner Family
DX: Z12.31 Encounter for screening mammogram for malignant neoplasm of breast (principal)
CPT/HCPCS: 77067

== ENCOUNTER 2020-02-08 11:38 | Observation (INO) | payer MEDICARE ==
[2020-02-08 12:16] LABS: ABSOLUTE BASOPHILS # (AUTO) 0.1 10^3/uL (0.0-0.2); ABSOLUTE EOSINOPHILS # (AUTO) 0.1 10^3/uL (0.0-0.6); ABSOLUTE LYMPHOCYTES (AUTO) 1.8 10^3/uL (0.5-4.7); ABSOLUTE MONOCYTES (AUTO) 0.6 10^3/uL (0.1-1.4); BASOPHILS % (AUTO) 0.6 % (0-2); EOSINOPHILS % (AUTO) 0.7 % (0-6); HEMATOCRIT 34.8 % (36.0-47.0); HEMOGLOBIN 11.4 g/dL (12.0-15.5); LYMPHOCYTES % (AUTO) 21.5 % (13-45); MEAN CORPUSCULAR HEMOGLOBIN 28.9 pg (27.0-33.4); MEAN CORPUSCULAR HGB CONC 32.9 g/dL (32.0-36.0); MEAN CORPUSCULAR VOLUME 88 fl (80-97); MONOCYTES % (AUTO) 6.5 % (3-13); PLATELET COUNT 182 10^3/uL (150-450); RED BLOOD COUNT 3.96 10^6/uL (3.72-5.28); RED CELL DISTRIBUTION WIDTH 18.9 % (11.5-14.0); SEGMENTED NEUTROPHILS % (AUTO) 70.7 % (42-78); TOTAL CELLS COUNTED % (AUTO) 100 %; WHITE BLOOD COUNT 8.5 10^3/uL (4.0-10.5)
--- NOTE | 2020-02-08 12:19 | ER Document Report ---
ED Syncope and Near Syncope - General Chief Complaint: Passed Out Prior to Arrival Stated Complaint: POSSIBLE SYNCOPE Time Seen by Provider: 02/08/20 11:57 Mode of Arrival: Medic Information source: Patient, Relative - Daughter Notes: 64-year-old woman presents to the emergency department with a history of a passing out episode. Apparently she was found in the yard by her son unresponsive lying on the ground. It is not clear how long the patient had been on the ground, she has no recall of the events, she denies neurologic symptoms. Daughter of the patient states that she has had a gastric bypass surgery which had to be reversed. She has chronic abdominal pain and weight loss. TRAVEL OUTSIDE OF THE [place] IN LAST 30 DAYS: No - Related Data Allergies/Adverse Reactions: acetaminophen [From Ultracet] Allergy (Severe, Verified 02/08/20 13:05) Hives codeine phosphate [From Codeine Phosphate Soluble] Allergy (Severe, Verified 02/08/20 13:05) Respiratory distress hydrocodone [Hydrocodone] Allergy (Severe, Verified 02/08/20 13:05) Hives hydromorphone HCl [From Dilaudid] Allergy (Severe, Verified 02/08/20 13:05) Anaphylaxis oxycodone HCl [From Percocet] Allergy (Severe, Verified 02/08/20 13:05) Hives tramadol [From Ultracet] Allergy (Severe, Verified 02/08/20 13:05) Hives tramadol HCl [From Ultram] Allergy (Severe, Verified 02/08/20 13:05) Hives valdecoxib [From Bextra] Allergy (Severe, Verified 02/08/20 13:05) Hives nalbuphine HCl [From Nubain] Allergy (Intermediate, Verified 02/08/20 13:05) Hives bee stings Allergy (Severe, Uncoded 03/12/17 08:24) Hives Past Medical History - Social History Smoking Status: Former Smoker Family History: Reviewed & Not Pertinent - Past Medical History Cardiac Medical History: Denies: Hx Coronary Artery Disease, Hx Heart Attack, Hx Hypertension, Hx Pulmonary Embolism Pulmonary Medical History: Denies: Hx Asthma, Hx Bronchitis, Hx COPD - DOES NOT HAVE ANYMORE, Hx Pneumonia, Hx Respiratory Failure, Hx Sleep Apnea, Hx Tuberculosis Neurological Medical History: Reports: Hx Migraine. Denies: Hx Cerebrovascular Accident, Hx Seizures Endocrine Medical History: Denies: Hx Diabetes Mellitus Type 2, Hx Graves' Disease, Hx Hyperthyroidism, Hx Hypothyroidism Renal/ Medical History: Denies: Hx Peritoneal Dialysis Malignancy Medical History: Denies: Hx Lung Cancer GI Medical History: Reports: Hx Gastroesophageal Reflux Disease, Hx Hepatitis, Hx Hiatal Hernia, Hx Ulcer. Denies: Hx Crohn's Disease, Hx Irritable Bowel, Hx Liver Failure, Hx Pancreatitis Musculoskeletal Medical History: Reports Hx Arthritis - RHEUMATOID, Denies Hx Fibromyalgia, Denies Hx Muscular Dystrophy, Reports Hx Systemic Lupus Erythematosus Psychiatric Medical History: Reports: Hx Depression Denies: Hx Bipolar Disorder, Hx Post Traumatic Stress Disorder, Hx Schizophrenia Traumatic Medical History: Denies: Hx Fractures Infectious Medical History: Reports: Hx Hepatitis Past Surgical History: Reports: Hx Abdominal Surgery - gastric bypass and then reversal, feeding tube placement x2, Hx Cholecystectomy, Hx Gastric Bypass Surgery - reversal of gastric bypass, Hx Hysterectomy, Hx Orthopedic Surgery - bilat knee, Hx Tonsillectomy, Hx Tubal Ligation. Denies: Hx Bowel Surgery, Hx Section, Hx Colostomy, Hx Coronary Artery Bypass Graft, Hx Herniorrhaphy, Hx Mastectomy, Hx Pacemaker - Immunizations Hx Diphtheria, Pertussis, Tetanus Vaccination: - Unsure Hx Pneumococcal Vaccination: 07/16/14 Review of Systems - Review of Systems Notes: Constitutional: + Weakness HENT: Negative for sore throat. Eyes: Negative for visual changes. Cardiovascular: Negative for chest pain. Respiratory: Negative for shortness of breath. Gastrointestinal: Negative for abdominal pain, vomiting or diarrhea. Genitourinary: Negative for dysuria. Musculoskeletal: Negative for back pain. Skin: Negative for rash. Neurological: + Syncopal episode 10 point ROS negative except as marked above and in HPI. Physical Exam - Vital signs Vitals: Temp Resp Pulse Ox 98.9 F 15 95 02/08/20 11:40 02/08/20 11:40 02/08/20 11:40 - Notes Notes: PHYSICAL EXAMINATION: Physical Exam: General: Chronically ill-appearing 64-year-old woman with hypotension and weakness HEENT: NC/AT, pupils equal round and reactive to light, MM moist,nares clear, oropharynx clear, airway patent Neck: supple, no adenopathy, no masses. Good range of motion Lungs: clear, no wheezing, no rales no rhonchi CVS: Regular rate and rhythm no murmur gallop or rub Abdomen: Soft, active, nontender, no masses, no hepatosplenomegaly Ext: No edema, clubbing or cyanosis. Neuro: Able to answer questions, oriented x3, follows directions and moving all 4 extremities on command, cranial nerves intact, no focal findings Skin: Intact no open lesions, no rash PSYCH: Normal mood, normal affect. Course - Re-evaluation Re-evalutation: 02/08/20 15:04 I discussed the findings of the CT scan and lab data with patient and daughter, explaining that while her blood pressure has improved after 2 L of fluid she is still on the low side of normal. Will require bring her into the hospital for further hydration and monitoring. The patient and daughter are in agreement with that plan. The hospitalist Dr. Alexander was called and will admit the patient to the [facility] for further evaluation and treatment. - Vital Signs Vital signs: Temp Pulse Resp BP Pulse Ox 97.8 F 62 12 134/73 H 100 02/08/20 18:42 02/08/20 18:42 02/08/20 18:42 02/08/20 18:42 02/08/20 18:42 - Laboratory Result Diagrams: 02/08/20 11:42 02/08/20 11:42 Laboratory results interpreted by me: 02/08/20 02/08/20 02/08/20 11:42 11:42 11:42 Hgb 11.4 L Hct 34.8 L RDW 18.9 H Chloride 111 H Anion Gap 1 L Glucose 64 L POC Glucose 69 L Total Protein 6.2 L 02/08/20 13:34 Hgb Hct RDW Chloride Anion Gap Glucose POC Glucose 121 H Total Protein - Diagnostic Test Radiology reviewed: Image reviewed, Reports reviewed Radiology results interpreted by me: 02/08/20 15:07 CT head noncontrast: No acute intracranial findings. - EKG Interpretation by [facility] EKG shows normal: Sinus rhythm, [place] - Normal, Intervals - Normal, QRS Complexes - Normal, ST-T Waves - Normal with no ischemic changes. Rate: Normal - Rate of 82 Discharge - Discharge Clinical Impression: Orthostasis Syncope Qualifiers: Syncope type: unspecified Qualified Code(s): R55 - Syncope and collapse Condition: Good Disposition: ADMITTED INPATIENT Admitting Provider: Catherine (Hospitalist) Unit Admitted: [facility]
[2020-02-08 12:21] LABS: ALBUMIN 3.5 g/dL (3.5-5.0); ALKALINE PHOSPHATASE 64 U/L (38-126); ASPARTATE AMINO TRANSFERASE 28 U/L (14-36); BILIRUBIN,TOTAL 0.4 mg/dL (0.2-1.3); BLOOD UREA NITROGEN 8 mg/dL (7-20); CALCIUM 9.2 mg/dL (8.4-10.2); CREATINE KINASE 127 U/L (30-135); POTASSIUM 3.7 mmol/L (3.6-5.0); TOTAL PROTEIN 6.2 g/dL (6.3-8.2)
[2020-02-08] MEDS ORDERED: NORMAL SALINE 1000 ML 1,000 ML IV ONE (12:22)
[2020-02-08 12:26] LABS: CHLORIDE 111 mmol/L (98-107)
[2020-02-08 12:27] LABS: ANION GAP 1 (5-19); CARBON DIOXIDE 27 mmol/L (22-30); GLUCOSE 64 mg/dL (75-110)
[2020-02-08 12:32] LABS: CREATINE KINASE MB 0.88 ng/mL (<4.55)
[2020-02-08 12:33] LABS: TROPONIN I < 0.012 ng/mL
--- NOTE | 2020-02-08 13:03 | RADIOLOGY REPORT (SQ) ---
EXAM DESCRIPTION: CT HEAD WITHOUT IMAGES COMPLETED DATE/TIME: 02/08/2020 12:45 pm REASON FOR STUDY: syncope COMPARISON: 07/23/2018 TECHNIQUE: Axial images acquired through the brain without intravenous contrast. Images reviewed wit h bone, brain and subdural windows. Images stored on PACS. All CT scanners at this facility use dose modulation, iterative reconstruction, and/or weight based d osing when appropriate to reduce radiation dose to as low as reasonably achievable (ALARA). [facility]: Dose Right [facility]: CareDose [facility]: Dose Right [facility]: Teradose 4D [facility]: [email or web address] RADIATION DOSE: CT Rad equipment meets quality standard of care and radiation dose reduction techniq ues were employed. CTDIvol: 53.2 mGy. DLP: 1070 mGy-cm.. LIMITATIONS: None. FINDINGS: VENTRICLES: Normal size and contour. CEREBRUM: No masses. No hemorrhage. No midline shift. Age appropriate white matter. No evidence for a cute infarction. CEREBELLUM: No masses. No hemorrhage. No alteration of density. No evidence for acute infarction. EXTRA-AXIAL SPACES: No fluid collections. ORBITS AND GLOBE: No intra- or extraconal masses. Normal contour of globe without masses. CALVARIUM: No fracture. PARANASAL SINUSES: No fluid or mucosal thickening. SOFT TISSUES: No mass or hematoma. OTHER: No other significant finding. IMPRESSION: NO ACUTE INTRACRANIAL FINDINGS. EVIDENCE OF ACUTE STROKE: NO. TECHNICAL DOCUMENTATION: JOB ID: [id number] Quality ID # [id number]: Final reports with documentation of one or more dose reduction techniques (e.g., Au tomated exposure control, adjustment of the mA and/or kV according to patient size, use of iterative reconstruction technique) 2010 [employer]- All Rights Reserved Reading location - IP/workstation name: [email or web address]
[2020-02-08] MEDS ORDERED: IPRATROPIUM/ALBUTEROL 0.5-2.5 MG/3 ML AMPUL NEB PRN (15:20)
[2020-02-08] MEDS ORDERED: PROMETHAZINE HCL INJ 25 MG/1 ML VIAL IV PRN (15:20)
[2020-02-08] MEDS ORDERED: NORMAL SALINE 1000 ML 1,000 ML IV PRN (15:20)
[2020-02-08] MEDS ORDERED: ONDANSETRON HCL INJ/PF 4 MG/2 ML SDV IV PRN (15:20)
[2020-02-08] MEDS ORDERED: TEMAZEPAM 7.5 MG CAPSULE PO PRN (15:20)
[2020-02-08 15:29] LABS: APPEARANCE,URINE CLEAR; BILIRUBIN,URINE NEGATIVE (NEGATIVE); COLOR,URINE YELLOW; GLUCOSE, URINE NEGATIVE (NEGATIVE); KETONES,URINE NEGATIVE (NEGATIVE); LEUKOCYTE ESTERASE,URINE NEGATIVE (NEGATIVE); NITRITE,URINE NEGATIVE (NEGATIVE); PROTEIN,URINE NEGATIVE (NEGATIVE); URINE SPECIFIC GRAVITY 1.011; UROBILINOGEN,URINE NEGATIVE mg/dL (<2.0)
--- NOTE | 2020-02-08 15:41 | RADIOLOGY REPORT (SQ) ---
EXAM DESCRIPTION: CHEST SINGLE VIEW IMAGES COMPLETED DATE/TIME: 02/08/2020 3:29 pm REASON FOR STUDY: Syncope COMPARISON: With 07/23/2018 TECHNIQUE: Single frontal radiographic view of the chest acquired. NUMBER OF VIEWS: One view. LIMITATIONS: None. FINDINGS: LUNGS AND PLEURA: No pneumothorax. No consolidation or pleural effusion. MEDIASTINUM AND HILAR STRUCTURES: Stable. HEART AND VASCULAR STRUCTURES: Stable. BONES: No acute findings. HARDWARE: None in the chest. OTHER: No other significant finding. IMPRESSION: NO ACUTE FINDINGS. TECHNICAL DOCUMENTATION: JOB ID: [id number] [id number] 2010 [email or web address]- All Rights Reserved Reading location - IP/workstation name: [email or web address]
[2020-02-08 17:44] LABS: URINE AMPHETAMINES SCREEN NEGATIVE; URINE BENZODIAZEPINES SCREEN NEGATIVE; URINE COCAINE SCREEN NEGATIVE; URINE METHADONE SCREEN NEGATIVE; URINE PHENCYCLIDINE SCREEN NEGATIVE
[2020-02-08 17:45] LABS: URINE BARBITURATES SCREEN UNCONFIRMED POSITIVE; URINE MARIJUANA (THC) SCREEN UNCONFIRMED POSITIVE
[2020-02-08] MEDS ORDERED: DEXTROSE 40% GEL 15 GM TUBE PO PRN ×2 (17:53)
[2020-02-08] MEDS ORDERED: DEXTROSE 50%-WATER 25 GM/50 ML DISP.SYRIN IV PRN ×2 (17:53)
[2020-02-08] MEDS ORDERED: GLUCAGON,HUMAN RECOMB 1 MG INJ IM PRN (17:53)
--- NOTE | 2020-02-08 17:53 | PDOC H&P ---
History of Present Illness Admission Date/PCP: 02/08/20 16:21 CHARO WYNN NP History of Present Illness: WILBUR LOWERY is a 64 year old female Hypertension, weight loss, status post gastric bypass surgery in 2010, status post reverse gastric bypass surgery 2014, hypertension, depression, brought to ED after episode of syncope. As per ED note patient was found in the yard by son unresponsive laying on the ground, this was called and patient was brought to ED. CT head on admission was negative. Troponin and EKG unremarkable. Was noted to be orthostatic positive and mild hypoglycemia.. On my encounter patient currently resting in bed no apparent distress, alert and oriented x3, answering questions appropriately, denies any focal neurological symptoms, does not recall any events preceding syncope, does remember his case calling her to get up, denies any history of arrhythmia, seizure disorder, patient had gastric bypass in 2010, due to excessive weight loss patient had reverse gastric bypass surgery in 2014, however patient has been having low p.o. tolerance and has not been able to regain her weight, denies any personal or family history of malignancy, denies any melena, night sweats. Patient is stating that she is not taking in much fluid and her appetite is low and cannot tolerate much p.o. intake, she is small amount of fluid however she feels full right away, she has not taking vitamins and has not been seen by the dietitian. Denies any fever, chills, nausea, vomiting, diarrhea, constipation or any urinary symptoms. Past Medical History Cardiac Medical History: Denies: Coronary Artery Disease, Myocardial Infarction, Hypertension, Pulmonary Embolism Pulmonary Medical History: Denies: Asthma, Bronchitis, Chronic Obstructive Pulmonary Disease (COPD) - DOES NOT HAVE ANYMORE, Pneumonia, Respiratory Failure, Sleep Apnea, Tuberculosis Neurological Medical History: Reports: Migraine Denies: Seizures Endocrine Medical History: Denies: Diabetes Mellitus Type 2, Hyperthyroidism, Hypothyroidism Malignancy Medical History: Denies: Lung Cancer GI Medical History: Reports: Gastroesophageal Reflux Disease, Hepatitis, Hiatal Hernia Denies: Crohn's Disease Musculoskeltal Medical History: Reports: Arthritis - RHEUMATOID Denies: Fibromyalgia Psychiatric Medical History: Reports: Depression Denies: Bipolar Disorder, Post Traumatic Stress Disorder Hematology: Denies: Anemia Past Surgical History Past Surgical History: Reports: Cholecystectomy, Gastric Bypass Surgery - reversal of gastric bypass, Hysterectomy, Orthopedic Surgery - bilat knee, Tonsillectomy, Tubal Ligation Denies: Amputation, Section, Colostomy, Coronary Artery Bypass Gra ft, Herniorrhaphy, Mastectomy, Pacemaker Social History Smoking Status: Former Smoker Frequency of Alcohol Use: None Hx Recreational Drug Use: No Drugs: Marijuana Hx Prescription Drug Abuse: No Family History Family History: Reviewed & Not Pertinent Parental Family History Reviewed: Yes Children Family History Reviewed: Yes Sibling(s) Family History Reviewed.: Yes Medication/Allergy Home Medications: Amitriptyline HCl [Elavil 50 Mg Tablet] 50 mg PO QHS 02/08/20 Amitriptyline HCl [Elavil 75 Mg Tablet] 75 mg PO DAILY 02/08/20 Dicyclomine HCl [Bentyl 10 mg Capsule] 10 mg PO QID 02/08/20 Gabapentin 800 mg PO QID 02/08/20 Mirtazapine [Remeron 15 mg Tablet] 15 mg PO QHS 02/08/20 Morphine Sulfate [Morphine Ir 15 mg Tablet] 15 mg TD PRN PRN 02/08/20 Primidone [Mysoline 50 mg Tablet] 50 mg PO DAILY 02/08/20 Allergies/Adverse Reactions: acetaminophen [From Ultracet] Allergy (Severe, Verified 02/08/20 13:05) Hives codeine phosphate [From Codeine Phosphate Soluble] Allergy (Severe, Verified 02/08/20 13:05) Respiratory distress hydrocodone [Hydrocodone] Allergy (Severe, Verified 02/08/20 13:05) Hives hydromorphone HCl [From Dilaudid] Allergy (Severe, Verified 02/08/20 13:05) Anaphylaxis oxycodone HCl [From Percocet] Allergy (Severe, Verified 02/08/20 13:05) Hives tramadol [From Ultracet] Allergy (Severe, Verified 02/08/20 13:05) Hives tramadol HCl [From Ultram] Allergy (Severe, Verified 02/08/20 13:05) Hives valdecoxib [From Bextra] Allergy (Severe, Verified 02/08/20 13:05) Hives nalbuphine HCl [From Nubain] Allergy (Intermediate, Verified 02/08/20 13:05) Hives bee stings Allergy (Severe, Uncoded 03/12/17 08:24) Hives Review of Systems Review of Systems: as per hpi Physical Exam Vital Signs: Temp Pulse Resp BP Pulse Ox 98.9 F 12 107/89 H 95 02/08/20 11:40 02/08/20 12:01 02/08/20 12:00 02/08/20 12:01 Intake & Output 02/07/20 02/08/20 02/09/20 06:59 06:59 06:59 Intake Total 1000 Balance 1000 Weight 52.6 kg General appearance: PRESENT: no acute distress, thin, other - Emaciated Respiratory exam: PRESENT: clear to auscultation [place]. ABSENT: rales, rhonchi, wheezes Cardiovascular exam: PRESENT: RRR. ABSENT: diastolic murmur, rubs, systolic murmur GI/Abdominal exam: PRESENT: normal bowel sounds, soft. ABSENT: distended, guarding, mass, organolmegaly, rebound, tenderness Neurological exam: PRESENT: alert, awake, oriented to person, oriented to place, oriented to time, oriented to situation, CN II-XII grossly intact. ABSENT: motor sensory deficit Skin exam: PRESENT: dry, intact, warm. ABSENT: cyanosis, rash Results Laboratory Results: 02/08/20 11:42 02/08/20 11:42 02/08/20 02/08/20 02/08/20 11:42 11:42 15:15 WBC 8.5 RBC 3.96 Hgb 11.4 L Hct 34.8 L MCV 88 MCH 28.9 MCHC 32.9 RDW 18.9 H Plt Count 182 Seg Neutrophils % 70.7 Sodium 139.1 Potassium 3.7 Chloride 111 H Carbon Dioxide 27 Anion Gap 1 L BUN 8 Creatinine 0.87 Est GFR ( Amer) > 60 Glucose 64 L Calcium 9.2 Total Bilirubin 0.4 AST 28 Alkaline Phosphatase 64 Total Protein 6.2 L Albumin 3.5 Urine Color YELLOW Urine Appearance CLEAR Urine pH 6.0 Ur Specific [place] 1.011 Urine Protein NEGATIVE Urine Glucose (UA) NEGATIVE Urine Ketones NEGATIVE Urine Blood NEGATIVE Urine Nitrite NEGATIVE Ur Leukocyte Esterase NEGATIVE Urine WBC (Auto) 0 Urine RBC (Auto) 0 02/08/20 02/08/20 11:42 11:42 Creatine Kinase 127 CK-MB (CK-2) 0.88 Troponin I < 0.012 Impressions: Head CT 02/08/20 12:21 IMPRESSION: NO ACUTE INTRACRANIAL FINDINGS. EVIDENCE OF ACUTE STROKE: NO. Chest X-Ray 02/08/20 14:46 IMPRESSION: NO ACUTE FINDINGS. Assessment and Plan - Diagnosis (1) Syncope Qualifiers: Syncope type: unspecified Qualified Code(s): R55 - Syncope and collapse Is this a current diagnosis for this admission?: Yes Plan: Most likely due to orthostatic hypotension. Endorses low p.o. intake. Denies any history of seizure disorder. Denies any history of arrhythmias. EKG sinus rhythm. Troponins negative. CT head negative. Admit to IMCU, volume resuscitation guided by volume status, telemetry, fall, seizure and aspiration precautions. (2) Malnutrition Qualifiers: Malnutrition type: protein-calorie malnutrition Protein-calorie malnutrition severity: severe Qualified Code(s): E43 - Unspecified severe protein-calorie malnutrition Is this a current diagnosis for this admission?: Yes Plan: Due to low p.o. intake. History of gastric bypass in 2010. Reverse gastric bypass surgery in 2014. Has been unable to maintain weight. Patient is tolerant however cannot take adequate p.o. intake as she follows for right away. Denies any history of malignancy. Chronic tobacco abuse. Occult malignancy possibility given history of tobacco abuse. Chest x-ray negative for any masses. Denies any melena, night sweats. Positive GI malignancy in the mother at age 70. Encourage p.o. intake. Consult dietitian for dietary recommendations. (3) Tobacco abuse Is this a current diagnosis for this admission?: Yes Plan: Counseled on quitting. NicoDerm patch will be provided. (4) Depression Is this a current diagnosis for this admission?: Yes Plan: Denies any suicidal homicidal ideation. Resume home meds. (5) Orthostasis Is this a current diagnosis for this admission?: Yes Plan: Due to low p.o. intake. Volume resuscitation guided by volume status. Fall, seizure and aspiration precautions (6) Hypoglycemia Is this a current diagnosis for this admission?: Yes Plan: Likely due to low p.o. intake. Encourage frequent snacking. D5NS. Every 6 Accu-Chek. - Time Time Spent with patient: 25-34 minutes Smoking Cessation Education: 3 to 10 minutes Medications reviewed and adjusted accordingly: Yes Anticipated Discharge Disposition: Home, Self Care Anticipated Discharge: within 48 hours
[2020-02-08] MEDS: NICOTINE 14 MG/24 HR PATCH.TD24 TD SCH (18:25)
[2020-02-08] MEDS: DEXTROSE 5%-NORMAL SALINE 1,000 ML IV PRN (18:30)
--- NOTE | 2020-02-08 19:20 | EKG REPORT ---
SEVERITY:- NORMAL ECG - SINUS RHYTHM : Confirmed by: Shelley Vargas 08-Feb-2020 19:19:13
[2020-02-08] MEDS ORDERED: MULTIVITAMINS W-IRON TABLET, CHEWABLE ONE (20:52)
[2020-02-08] MEDS: MULTIVITAMINS W-IRON TABLET, CHEWABLE PO SCH (20:57)
[2020-02-08] MEDS: FAMOTIDINE 20 MG TABLET PO SCH (21:02)
[2020-02-09] MEDS: DEXTROSE 5%-NORMAL SALINE 1,000 ML IV PRN ×2 (03:46→14:20)
[2020-02-09 06:32] LABS: ABSOLUTE EOSINOPHILS # (AUTO) 0.1 10^3/uL (0.0-0.6); ABSOLUTE LYMPHOCYTES (AUTO) 2.1 10^3/uL (0.5-4.7); ABSOLUTE MONOCYTES (AUTO) 0.4 10^3/uL (0.1-1.4); ABSOLUTE NEUT (AUTO) 2.2 10^3/uL (1.7-8.2); BASOPHILS % (AUTO) 0.4 % (0-2); EOSINOPHILS % (AUTO) 1.3 % (0-6); HEMATOCRIT 33.5 % (36.0-47.0); HEMOGLOBIN 10.9 g/dL (12.0-15.5); LYMPHOCYTES % (AUTO) 44.2 % (13-45); MEAN CORPUSCULAR HEMOGLOBIN 28.9 pg (27.0-33.4); MEAN CORPUSCULAR HGB CONC 32.6 g/dL (32.0-36.0); MEAN CORPUSCULAR VOLUME 89 fl (80-97); MONOCYTES % (AUTO) 7.5 % (3-13); PLATELET COUNT 176 10^3/uL (150-450); RED BLOOD COUNT 3.78 10^6/uL (3.72-5.28); RED CELL DISTRIBUTION WIDTH 18.9 % (11.5-14.0); SEGMENTED NEUTROPHILS % (AUTO) 46.6 % (42-78); TOTAL CELLS COUNTED % (AUTO) 100 %; WHITE BLOOD COUNT 4.8 10^3/uL (4.0-10.5)
[2020-02-09 07:03] LABS: ALKALINE PHOSPHATASE 63 U/L (38-126); ASPARTATE AMINO TRANSFERASE 26 U/L (14-36); BILIRUBIN,TOTAL 0.3 mg/dL (0.2-1.3); BLOOD UREA NITROGEN 7 mg/dL (7-20); CALCIUM 8.5 mg/dL (8.4-10.2); GLUCOSE 78 mg/dL (75-110); POTASSIUM 4.1 mmol/L (3.6-5.0); TOTAL PROTEIN 5.6 g/dL (6.3-8.2)
[2020-02-09 07:08] LABS: CARBON DIOXIDE 26 mmol/L (22-30); CHLORIDE 112 mmol/L (98-107)
[2020-02-09 07:10] LABS: PREALBUMIN 15.5 mg/dL (17.6-36.0)
[2020-02-09 07:13] LABS: ANION GAP 2 (5-19)
[2020-02-09] MEDS: MULTIVITAMINS W-IRON TABLET, CHEWABLE PO SCH (10:34)
[2020-02-09] MEDS: ENOXAPARIN SODIUM INJ 40 MG/0.4 ML DISP.SYRIN SUBCUT SCH (10:36)
[2020-02-09] MEDS: FAMOTIDINE 20 MG TABLET PO SCH ×2 (10:36→22:04)
[2020-02-09] MEDS: NICOTINE 14 MG/24 HR PATCH.TD24 TD SCH (10:36)
[2020-02-09] MEDS ORDERED: MORPHINE SULFATE IR 15 MG TABLET PO PRN (12:38)
--- NOTE | 2020-02-09 12:58 | PDOC PROGRESS REPORT ---
Subjective Progress Note for:: 02/09/20 Subjective:: WILBUR LOWERY is a 64 year old female Hypertension, weight loss, status post gastric bypass surgery in 2010, status post reverse gastric bypass surgery 2014, hypertension, depression, brought to ED after episode of syncope. As per ED note patient was found in the yard by son unresponsive laying on the ground, this was called and patient was brought to ED. CT head on admission was negative. Troponin and EKG unremarkable. Was noted to be orthostatic positive and mild hypoglycemia.. On my encounter patient currently resting in bed no apparent distress, alert and oriented x3, answering questions appropriately, denies any focal neurological symptoms, does not recall any events preceding syncope, does remember his case calling her to get up, denies any history of arrhythmia, seizure disorder, patient had gastric bypass in 2010, due to excessive weight loss patient had reverse gastric bypass surgery in 2014, however patient has been having low p.o. tolerance and has not been able to regain her weight, denies any personal or family history of malignancy, denies any melena, night sweats. Patient is stating that she is not taking in much fluid and her appetite is low and cannot tolerate much p.o. intake, she is small amount of fluid however she feels full right away, she has not taking vitamins and has not been seen by the dietitian. Denies any fever, chills, nausea, vomiting, diarrhea, constipation or any urinary symptoms. 02/09/2020. No acute events overnight. Patient sitting in her chair comfortably in no apparent distress, enjoying her breakfast, alert and oriented, answering questions appropriately, denies any fever, chills, nausea, vomiting, lightheadedness, syncope, presyncope, focal neurological symptoms. Reason For Visit: SYNCOPE,ORTHOSTASIS Physical Exam Vital Signs: Temp Pulse Resp BP Pulse Ox 98.3 F 64 16 140/79 H 97 02/09/20 07:20 02/09/20 09:25 02/09/20 09:25 02/09/20 07:20 02/09/20 09:25 Intake & Output 02/08/20 02/09/20 02/10/20 06:59 06:59 06:59 Intake Total 2220 Output Total 450 Balance 1770 Weight 50.081 kg 50.081 kg General appearance: PRESENT: no acute distress, thin Head exam: PRESENT: atraumatic, normocephalic Respiratory exam: PRESENT: clear to auscultation [place]. ABSENT: rales, rhonchi, wheezes Cardiovascular exam: PRESENT: RRR. ABSENT: diastolic murmur, rubs, systolic murmur GI/Abdominal exam: PRESENT: normal bowel sounds, soft. ABSENT: distended, guarding, mass, organolmegaly, rebound, tenderness Neurological exam: PRESENT: alert, awake, oriented to person, oriented to place, oriented to time, oriented to situation, CN II-XII grossly intact. ABSENT: motor sensory deficit Results Laboratory Results: 02/09/20 05:14 02/09/20 05:14 02/08/20 02/09/20 02/09/20 15:15 05:14 05:14 WBC 4.8 RBC 3.78 Hgb 10.9 L Hct 33.5 L MCV 89 MCH 28.9 MCHC 32.6 RDW 18.9 H Plt Count 176 Seg Neutrophils % 46.6 Sodium 139.5 Potassium 4.1 Chloride 112 H Carbon Dioxide 26 Anion Gap 2 L BUN 7 Creatinine 0.73 Est GFR ( Amer) > 60 Glucose 78 Calcium 8.5 Magnesium 2.0 Total Bilirubin 0.3 AST 26 Alkaline Phosphatase 63 Total Protein 5.6 L Albumin 3.0 L Prealbumin 15.5 L TSH Urine Color YELLOW Urine Appearance CLEAR Urine pH 6.0 Ur Specific [place] 1.011 Urine Protein NEGATIVE Urine Glucose (UA) NEGATIVE Urine Ketones NEGATIVE Urine Blood NEGATIVE Urine Nitrite NEGATIVE Ur Leukocyte Esterase NEGATIVE Urine WBC (Auto) 0 Urine RBC (Auto) 0 02/09/20 05:14 WBC RBC Hgb Hct MCV MCH MCHC RDW Plt Count Seg Neutrophils % Sodium Potassium Chloride Carbon Dioxide Anion Gap BUN Creatinine Est GFR ( Amer) Glucose Calcium Magnesium Total Bilirubin AST Alkaline Phosphatase Total Protein Albumin Prealbumin TSH 0.82 Urine Color Urine Appearance Urine pH Ur Specific [place] Urine Protein Urine Glucose (UA) Urine Ketones Urine Blood Urine Nitrite Ur Leukocyte Esterase Urine WBC (Auto) Urine RBC (Auto) 02/08/20 02/08/20 11:42 11:42 Creatine Kinase 127 CK-MB (CK-2) 0.88 Troponin I < 0.012 Impressions: Head CT 02/08/20 12:21 IMPRESSION: NO ACUTE INTRACRANIAL FINDINGS. EVIDENCE OF ACUTE STROKE: NO. Chest X-Ray 02/08/20 14:46 IMPRESSION: NO ACUTE FINDINGS. Assessment and Plan - Diagnosis (1) Syncope Qualifiers: Syncope type: unspecified Qualified Code(s): R55 - Syncope and collapse Is this a current diagnosis for this admission?: Yes Plan: Stable. No recurrence. Denies any syncope or presyncope, lightheadedness or chest palpitation. Most likely due to orthostatic hypotension. Endorses low p.o. intake. Denies any history of seizure disorder. Denies any history of arrhythmias. EKG sinus rhythm. Troponins negative. CT head negative. Continue volume resuscitation guided by volume status, telemetry, fall, seizure and aspiration precautions. (2) Malnutrition Qualifiers: Malnutrition type: protein-calorie malnutrition Protein-calorie malnutrition severity: severe Qualified Code(s): E43 - Unspecified severe protein-calorie malnutrition Is this a current diagnosis for this admission?: Yes Plan: Due to low p.o. intake. History of gastric bypass in 2010. Reverse gastric bypass surgery in 2014. Has been unable to maintain weight. Patient is tolerant however cannot take adequate p.o. intake as she follows for right away. Denies any history of malignancy. Chronic tobacco abuse. Occult malignancy possibility given history of tobacco abuse. Chest x-ray negative for any masses. Denies any melena, night sweats. Positive GI malignancy in the mother at age 70. Encourage p.o. intake. Consult dietitian for dietary recommendations. (3) Tobacco abuse Is this a current diagnosis for this admission?: Yes Plan: Counseled on quitting. NicoDerm patch will be provided. (4) Depression Is this a current diagnosis for this admission?: Yes Plan: Denies any suicidal homicidal ideation. Resume home meds. (5) Orthostasis Is this a current diagnosis for this admission?: Yes Plan: Resolved. Due to low p.o. intake. Volume resuscitation guided by volume status. Fall, seizure and aspiration precautions (6) Hypoglycemia Is this a current diagnosis for this admission?: Yes Plan: Likely due to low p.o. intake. Hemoglobin A1c 5.1. Prealbumin 15. Encourage frequent snacking. D5NS. Every 6 Accu-Chek. Dietitian has been consulted. Pending recommendations. - Time Time Spent with patient: 15-24 minutes Smoking Cessation Education: 3 to 10 minutes Medications reviewed and adjusted accordingly: Yes Anticipated Discharge Disposition: Home, Self Care Anticipated Discharge: within 24 hours
[2020-02-09] MEDS ORDERED: (PENDING PHARMACY ID) (Gabapentin [Gabapentin] 800 MG) PO SCH (14:00)
[2020-02-09] MEDS: PRIMIDONE 50 MG TABLET PO SCH (14:20)
[2020-02-09] MEDS ORDERED: MORPHINE SULFATE 10 MG/ML INJ IV ONE (16:00)
[2020-02-09] MEDS: DICYCLOMINE HCL 10 MG CAPSULE PO SCH ×2 (17:05→22:04)
[2020-02-09] MEDS: GABAPENTIN 400 MG CAPSULE PO SCH ×2 (17:06→23:15)
[2020-02-09] MEDS ORDERED: MORPHINE SULFATE 10 MG/ML INJ IV PRN (19:26)
[2020-02-09] MEDS: MORPHINE SULFATE IR 15 MG TABLET PO PRN (20:17)
[2020-02-09] MEDS: AMITRIPTYLINE HCL 75 MG TABLET PO SCH (22:04)
[2020-02-10] MEDS: DEXTROSE 5%-NORMAL SALINE 1,000 ML IV PRN ×3 (00:26→18:17)
[2020-02-10] MEDS: GABAPENTIN 400 MG CAPSULE PO SCH ×4 (05:27→23:33)
[2020-02-10] MEDS: MORPHINE SULFATE IR 15 MG TABLET PO PRN ×3 (05:28→23:35)
[2020-02-10] MEDS: MULTIVITAMINS W-IRON TABLET, CHEWABLE PO SCH ×2 (09:19→09:24)
[2020-02-10] MEDS: NICOTINE 14 MG/24 HR PATCH.TD24 TD SCH (09:21)
[2020-02-10] MEDS: FAMOTIDINE 20 MG TABLET PO SCH ×2 (09:22→23:33)
[2020-02-10] MEDS: DICYCLOMINE HCL 10 MG CAPSULE PO SCH ×4 (09:22→23:33)
[2020-02-10] MEDS: PRIMIDONE 50 MG TABLET PO SCH (09:22)
[2020-02-10] MEDS: CYANOCOBALAMIN (VITAMIN B-12) 1,000 MCG TABLET PO SCH (09:22)
[2020-02-10] MEDS: ENOXAPARIN SODIUM INJ 40 MG/0.4 ML DISP.SYRIN SUBCUT SCH (09:23)
[2020-02-10] MEDS ORDERED: [UNRECOGNIZED DRUG - OTHER] PO SCH (10:00)
--- NOTE | 2020-02-10 13:28 | PDOC PROGRESS REPORT ---
Subjective Progress Note for:: 02/10/20 Subjective:: 02/10/2020 Patient very anxious and speaking quickly during encounter today. She repeatedly makes statements about wanting more narcotics stating that if she only had one really big dose of IV morphine that her pain would be manageable thereafter. She told me she takes oral morphine 3 times a day and then another dose of as needed morphine for breakthrough however this PRN dose is not listed in her home medications at all. I have asked the pharmacist to look back at her filled prescriptions to determine if this is what she takes at home. He also made multiple conflicting statements to me about her smoking history stating she quit 17 years ago, then quit 4 years ago, then states she continues to smoke but only off and on in certain situations, then states she continues to smoke daily. I am very unsure how much she smokes and for how long. She has been refusing a nicotine patch. I will not increase her narcotics but she can have her home dose narcotics once we verify these. Dietitian consult was placed by physician yesterday and we are waiting on them to see the patient. Can probably go home tomorrow. Reason For Visit: SYNCOPE,ORTHOSTASIS Physical Exam Vital Signs: Temp Pulse Resp BP Pulse Ox 100.5 F H 83 14 152/76 H 90 L 02/10/20 07:37 02/10/20 11:17 02/10/20 11:17 02/10/20 07:37 02/10/20 11:17 Intake & Output 02/09/20 02/10/20 02/11/20 06:59 06:59 06:59 Intake Total 2220 2120 908 Output Total 450 4050 Balance 1770 -1930 908 Weight 50.081 kg 49.6 kg General appearance: PRESENT: no acute distress, thin Head exam: PRESENT: atraumatic, normocephalic Eye exam: PRESENT: conjunctiva pink, EOMI, PERRLA. ABSENT: scleral icterus Mouth exam: PRESENT: moist Respiratory exam: PRESENT: clear to auscultation [place]. ABSENT: rales, rhonchi, wheezes Cardiovascular exam: PRESENT: RRR. ABSENT: diastolic murmur, rubs, systolic murmur GI/Abdominal exam: PRESENT: normal bowel sounds, soft. ABSENT: distended, guarding, mass, organolmegaly, rebound, tenderness Musculoskeletal exam: PRESENT: ambulatory Neurological exam: PRESENT: alert, awake, oriented to person, oriented to place, oriented to time, oriented to situation Psychiatric exam: PRESENT: anxious, normal mood Skin exam: PRESENT: dry, intact, warm Results Laboratory Results: 02/09/20 05:14 02/09/20 05:14 02/08/20 02/08/20 11:42 11:42 Creatine Kinase 127 CK-MB (CK-2) 0.88 Troponin I < 0.012 Impressions: Head CT 02/08/20 12:21 IMPRESSION: NO ACUTE INTRACRANIAL FINDINGS. EVIDENCE OF ACUTE STROKE: NO. Chest X-Ray 02/08/20 14:46 IMPRESSION: NO ACUTE FINDINGS. Assessment and Plan - Diagnosis (1) Syncope Qualifiers: Syncope type: unspecified Qualified Code(s): R55 - Syncope and collapse Is this a current diagnosis for this admission?: Yes Plan: Stable. No recurrence. Denies any syncope or presyncope, lightheadedness or chest palpitation. Most likely due to orthostatic hypotension. Endorses low p.o. intake. Denies any history of seizure disorder. Denies any history of arrhythmias. EKG sinus rhythm. Troponins negative. CT head negative. Continue volume resuscitation guided by volume status, telemetry, fall, seizure and aspiration precautions. 02/10/2020 Due to dehydration and orthostatic hypotension most likely No syncope since admission CT head on admission negative for acute findings Carotid PVL pending (2) Hypoglycemia Is this a current diagnosis for this admission?: Yes (3) Malnutrition Qualifiers: Malnutrition type: protein-calorie malnutrition Protein-calorie malnutrition severity: severe Qualified Code(s): E43 - Unspecified severe protein-calorie malnutrition Is this a current diagnosis for this admission?: Yes Plan: Due to low p.o. intake. History of gastric bypass in 2010. Reverse gastric bypass surgery in 2015. Has been unable to maintain weight. Patient is tolerant however cannot take adequate p.o. intake as she follows for right away. Denies any history of malignancy. Chronic tobacco abuse. Occult malignancy possibility given history of tobacco abuse. Chest x-ray negative for any masses. Denies any melena, night sweats. Positive GI malignancy in the mother at age 70. Encourage p.o. intake. Consult dietitian for dietary recommendations. Severe protein calorie malnutrition (4) Orthostasis Is this a current diagnosis for this admission?: Yes (5) Tobacco abuse Is this a current diagnosis for this admission?: Yes (6) Chest pain Is this a current diagnosis for this admission?: Yes (7) Depression Is this a current diagnosis for this admission?: Yes (8) HTN (hypertension) Is this a current diagnosis for this admission?: Yes (9) Migraine Is this a current diagnosis for this admission?: Yes - Time Time Spent with patient: 25-34 minutes Medications reviewed and adjusted accordingly: Yes Anticipated Discharge Disposition: Home, Self Care Anticipated Discharge: within 24 hours - Inpatient Certification Based on my medical assessment, after consideration of the patient's comorbidities, presenting symptoms, or acuity I expect that the services needed warrant INPATIENT care.: Yes I certify that my determination is in accordance with my understanding of Medicare's requirements for reasonable and necessary INPATIENT services [42 CFR 412.3e].: Yes Medical Necessity: Significant Comorbidiites Make Outpatient Treatment Too Risky, Need Close Monitoring Due to Risk of Patient Decompensation, Risk of Complication if Not Cared For in Hospital, Risk of Diagnosis Which Will Require Inpatient Eval/Care/Monitoring
[2020-02-10] MEDS ORDERED: MORPHINE SULFATE 10 MG/ML INJ IV PRN (18:00)
[2020-02-10] MEDS: AMITRIPTYLINE HCL 75 MG TABLET PO SCH (23:33)
[2020-02-11] MEDS: GABAPENTIN 400 MG CAPSULE PO SCH ×4 (05:15→23:00)
[2020-02-11] MEDS: MORPHINE SULFATE IR 15 MG TABLET PO PRN ×3 (05:23→22:57)
[2020-02-11] MEDS: DEXTROSE 5%-NORMAL SALINE 1,000 ML IV PRN ×2 (05:24→15:46)
[2020-02-11] MEDS: MULTIVITAMINS W-IRON TABLET, CHEWABLE PO SCH (09:38)
[2020-02-11] MEDS: NICOTINE 14 MG/24 HR PATCH.TD24 TD SCH (09:38)
[2020-02-11] MEDS: ENOXAPARIN SODIUM INJ 40 MG/0.4 ML DISP.SYRIN SUBCUT SCH (09:39)
[2020-02-11] MEDS: CYANOCOBALAMIN (VITAMIN B-12) 1,000 MCG TABLET PO SCH (09:39)
[2020-02-11] MEDS: FAMOTIDINE 20 MG TABLET PO SCH ×2 (09:39→22:56)
[2020-02-11] MEDS: DICYCLOMINE HCL 10 MG CAPSULE PO SCH ×4 (09:39→22:56)
[2020-02-11] MEDS: PRIMIDONE 50 MG TABLET PO SCH (09:39)
[2020-02-11] MEDS: LIDOCAINE 5% (700 MG) TRANSDERMAL ADH..PATCH TP SCH (09:39)
--- NOTE | 2020-02-11 14:48 | PDOC PROGRESS REPORT ---
Subjective Progress Note for:: 02/11/20 Subjective:: 02/10/2020 Patient very anxious and speaking quickly during encounter today. She repeatedly makes statements about wanting more narcotics stating that if she only had one really big dose of IV morphine that her pain would be manageable thereafter. She told me she takes oral morphine 3 times a day and then another dose of as needed morphine for breakthrough however this PRN dose is not listed in her home medications at all. I have asked the pharmacist to look back at her filled prescriptions to determine if this is what she takes at home. He also made multiple conflicting statements to me about her smoking history stating she quit 17 years ago, then quit 4 years ago, then states she continues to smoke but only off and on in certain situations, then states she continues to smoke daily. I am very unsure how much she smokes and for how long. She has been refusing a nicotine patch. I will not increase her narcotics but she can have her home dose narcotics once we verify these. Dietitian consult was placed by physician yesterday and we are waiting on them to see the patient. Can probably go home tomorrow. 02/11/2020 Patient showed me today her right posterior forearm which has some erythema/edema/tenderness which is new from yesterday. She states that EMS emergently placed an IV in her right forearm and since then it has been somewhat painful but today it has become more inflamed. On exam, she has a small superficial pustule and redness of her forearm consistent with cellulitis. We will start her on Bactrim twice daily oral and see if this clears up by tomorrow or at least improves. If patient shows improvement in her cellulitis by t omorrow, she can be discharged home. Other than the aforementioned cellulitis complaints and her chronic pain, she has no new complaints today. Reason For Visit: SYNCOPE,ORTHOSTASIS Physical Exam Vital Signs: Temp Pulse Resp BP Pulse Ox 98.7 F 86 18 149/78 H 100 02/11/20 12:15 02/11/20 14:00 02/11/20 12:15 02/11/20 12:15 02/11/20 12:15 Intake & Output 02/10/20 02/11/20 02/12/20 06:59 06:59 06:59 Intake Total 2120 4367 Output Total 4050 2550 Balance -1930 1817 Weight 49.6 kg 50.5 kg General appearance: PRESENT: no acute distress, well-developed, well-nourished Head exam: PRESENT: atraumatic, normocephalic Eye exam: PRESENT: conjunctiva pink Mouth exam: PRESENT: moist Respiratory exam: PRESENT: clear to auscultation milton. ABSENT: rales, rhonchi, wheezes Cardiovascular exam: PRESENT: RRR. ABSENT: diastolic murmur, rubs, systolic murmur GI/Abdominal exam: PRESENT: normal bowel sounds, soft. ABSENT: distended, guarding, mass, organolmegaly, rebound, tenderness Extremities exam: PRESENT: other - Right arm with erythema/edema/warmth and small 1 cm pustule at distal forearm posteriorly Musculoskeletal exam: PRESENT: ambulatory Neurological exam: PRESENT: alert, awake, oriented to person, oriented to place, oriented to time, oriented to situation Psychiatric exam: PRESENT: unusual affect Skin exam: PRESENT: dry, intact, warm Results Laboratory Results: 02/09/20 05:14 02/09/20 05:14 02/08/20 02/08/20 11:42 11:42 Creatine Kinase 127 CK-MB (CK-2) 0.88 Troponin I < 0.012 Impressions: Head CT 02/08/20 12:21 IMPRESSION: NO ACUTE INTRACRANIAL FINDINGS. EVIDENCE OF ACUTE STROKE: NO. Chest X-Ray 02/08/20 14:46 IMPRESSION: NO ACUTE FINDINGS. Assessment and Plan - Diagnosis (1) Syncope Qualifiers: Syncope type: unspecified Qualified Code(s): R55 - Syncope and collapse Is this a current diagnosis for this admission?: Yes Plan: Stable. No recurrence. Denies any syncope or presyncope, lightheadedness or chest palpitation. Most likely due to orthostatic hypotension. Endorses low p.o. intake. Denies any history of seizure disorder. Denies any history of arrhythmias. EKG sinus rhythm. Troponins negative. CT head negative. Continue volume resuscitation guided by volume status, telemetry, fall, seizure and aspiration precautions. 02/10/2020 Due to dehydration and orthostatic hypotension most likely No syncope since admission CT head on admission negative for acute findings Carotid PVL pending 02/11/2020 Carotid PVL has been done but the results are not back yet No further syncope Counseled extensively on making sure she is well-hydrated and receives adequate nutrition at home (2) Right arm cellulitis Is this a current diagnosis for this admission?: Yes Plan: 02/11/2020 Infection appeared this morning with 1 cm pustule on right posterior forearm. Start Bactrim p.o. twice daily, confirmed with patient she has no antibiotic allergies No systemic signs or symptoms of infection, only mild localized erythema/edema/tenderness (3) Hypoglycemia Is this a current diagnosis for this admission?: Yes (4) Malnutrition Qualifiers: Malnutrition type: protein-calorie malnutrition Protein-calorie malnutrition severity: severe Qualified Code(s): E43 - Unspecified severe protein-calorie malnutrition Is this a current diagnosis for this admission?: Yes (5) Orthostasis Is this a current diagnosis for this admission?: Yes (6) Tobacco abuse Is this a current diagnosis for this admission?: Yes (7) Chest pain Is this a current diagnosis for this admission?: Yes (8) Depression Is this a current diagnosis for this admission?: Yes (9) HTN (hypertension) Is this a current diagnosis for this admission?: Yes (10) Migraine Is this a current diagnosis for this admission?: Yes - Time Time Spent with patient: 25-34 minutes Medications reviewed and adjusted accordingly: Yes Anticipated Discharge Disposition: Home, Self Care Anticipated Discharge Timeframe: within 24 hours
[2020-02-11] MEDS: SULFAMETHOXAZOLE/TRIMETHOPRIM 800-160 MG TABLET PO SCH (17:03)
--- NOTE | 2020-02-11 17:23 | RADIOLOGY REPORT (SQ) ---
EXAM DESCRIPTION: CAROTID DOPPLER IMAGES COMPLETED DATE/TIME: 02/11/2020 4:14 pm REASON FOR STUDY: vascular disease COMPARISON: None. TECHNIQUE: Grayscale ultrasound, Doppler velocity and spectra, and color Doppler images acquired of the extra-cranial carotid and vertebral arteries. Images stored on PACS. LIMITATIONS: None. FINDINGS: RIGHT CAROTID CCA Velocities: Within normal limits. ICA Velocities Peak systolic 97 cm/s. End diastolic 33 cm/s. Proximal ICA/CCA peak systolic ratio 1.4. There is some soft plaque. LEFT CAROTID CCA Velocities: Within normal limits. ICA Velocities Peak systolic 89 cm/s. End diastolic 32 cm/s. Proximal ICA/CCA peak systolic ratio 1.0. There is some soft plaque. VERTEBRAL ARTERIES: Antegrade flow. Normal waveforms. SUBCLAVIAN ARTERIES: No finding. OTHER: No other significant finding. IMPRESSION: NO HEMODYNAMICALLY SIGNIFICANT STENOSIS. COMMENT: Quality ID #[id number]: Velocity criteria are extrapolated from the diameter data as defined by t he Society of Radiologists in Ultrasound Consensus Conference. Radiology 2003: 229; 340-346. TECHNICAL DOCUMENTATION: JOB ID: [id number] 2010 [employer]- All Rights Reserved Reading location - IP/workstation name: [email or web address]
[2020-02-11] MEDS: AMITRIPTYLINE HCL 75 MG TABLET PO SCH (22:56)
[2020-02-12] MEDS: DEXTROSE 5%-NORMAL SALINE 1,000 ML IV PRN ×2 (04:06→15:04)
[2020-02-12] MEDS: GABAPENTIN 400 MG CAPSULE PO SCH ×3 (06:41→17:34)
[2020-02-12] MEDS: MULTIVITAMINS W-IRON TABLET, CHEWABLE PO SCH (09:56)
[2020-02-12] MEDS ORDERED: (PENDING PHARMACY ID) (Lansoprazole [Lansoprazole] 30 MG) PO SCH (10:00)
[2020-02-12] MEDS: DICYCLOMINE HCL 10 MG CAPSULE PO SCH ×4 (10:10→22:05)
[2020-02-12] MEDS: NICOTINE 14 MG/24 HR PATCH.TD24 TD SCH (10:20)
[2020-02-12] MEDS: PRIMIDONE 50 MG TABLET PO SCH (11:00)
[2020-02-12] MEDS: LIDOCAINE 5% (700 MG) TRANSDERMAL ADH..PATCH TP SCH (11:00)
[2020-02-12] MEDS: CYANOCOBALAMIN (VITAMIN B-12) 1,000 MCG TABLET PO SCH (11:00)
[2020-02-12] MEDS: MIRTAZAPINE 15 MG TABLET PO SCH (11:01)
[2020-02-12] MEDS: FAMOTIDINE 20 MG TABLET PO SCH ×2 (11:01→22:06)
[2020-02-12] MEDS: ENOXAPARIN SODIUM INJ 40 MG/0.4 ML DISP.SYRIN SUBCUT SCH (11:01)
[2020-02-12] MEDS: SULFAMETHOXAZOLE/TRIMETHOPRIM 800-160 MG TABLET PO SCH (11:01)
[2020-02-12] MEDS ORDERED: VANCOMYCIN HCL INJ 1000 MG VIAL IV SCH (12:00)
[2020-02-12] MEDS: MORPHINE SULFATE IR 15 MG TABLET PO PRN ×2 (12:07→20:36)
--- NOTE | 2020-02-12 12:18 | PDOC PROGRESS REPORT ---
Subjective Progress Note for:: 02/12/20 Subjective:: 02/10/2020 Patient very anxious and speaking quickly during encounter today. She repeatedly makes statements about wanting more narcotics stating that if she only had one really big dose of IV morphine that her pain would be manageable thereafter. She told me she takes oral morphine 3 times a day and then another dose of as needed morphine for breakthrough however this PRN dose is not listed in her home medications at all. I have asked the pharmacist to look back at her filled prescriptions to determine if this is what she takes at home. He also made multiple conflicting statements to me about her smoking history stating she quit 17 years ago, then quit 4 years ago, then states she continues to smoke but only off and on in certain situations, then states she continues to smoke daily. I am very unsure how much she smokes and for how long. She has been refusing a nicotine patch. I will not increase her narcotics but she can have her home dose narcotics once we verify these. Dietitian consult was placed by physician yesterday and we are waiting on them to see the patient. Can probably go home tomorrow. 02/11/2020 Patient showed me today her right posterior forearm which has some erythema/edema/tenderness which is new from yesterday. She states that EMS emergently placed an IV in her right forearm and since then it has been somewhat painful but today it has become more inflamed. On exam, she has a small superficial pustule and redness of her forearm consistent with cellulitis. We will start her on Bactrim twice daily oral and see if this clears up by tomorrow or at least improves. If patient shows improvement in her cellulitis by t omorrow, she can be discharged home. Other than the aforementioned cellulitis complaints and her chronic pain, she has no new complaints today. 02/12/2020 Right arm looks worse today and is more swollen and erythematous. She does not seem to have responded to the Bactrim and we will need to obtain a PVL of the RUE to rule out DVT. I have also stopped Bactrim and replace this with vancomycin IV. If she has a DVT, we will start appropriate anticoagulation. I believe her arm is more consistent with a cellulitis than the clotting problem. Patient states everything else is going fine and her pain is controlled at this time. Other than her chronic pain she has no new complaints. Reason For Visit: SYNCOPE,ORTHOSTASIS Physical Exam Vital Signs: Temp Pulse Resp BP Pulse Ox 98.0 F 79 16 126/66 H 100 02/12/20 11:20 02/12/20 11:20 02/12/20 11:20 02/12/20 11:20 02/12/20 11:20 Intake & Output 02/11/20 02/12/20 02/13/20 06:59 06:59 06:59 Intake Total 4367 3250 Output Total 2550 2750 Balance 1817 500 Weight 50.5 kg 50.6 kg General appearance: PRESENT: no acute distress, well-developed, well-nourished Head exam: PRESENT: atraumatic, normocephalic Eye exam: PRESENT: conjunctiva pink Mouth exam: PRESENT: moist Respiratory exam: PRESENT: clear to auscultation milton. ABSENT: rales, rhonchi, wheezes Cardiovascular exam: PRESENT: RRR. ABSENT: diastolic murmur, rubs, systolic murmur GI/Abdominal exam: PRESENT: normal bowel sounds, soft. ABSENT: distended, guarding, mass, organolmegaly, rebound, tenderness Extremities exam: PRESENT: tenderness - Right upper extremity with significant erythema and edema compared to yesterday. Pustule at distal forearm noted again. ABSENT: pedal edema Neurological exam: PRESENT: alert, awake, oriented to person, oriented to place, oriented to time, oriented to situation Skin exam: PRESENT: dry, intact, warm Results Laboratory Results: 02/09/20 05:14 02/09/20 05:14 02/08/20 02/08/20 11:42 11:42 Creatine Kinase 127 CK-MB (CK-2) 0.88 Troponin I < 0.012 Impressions: Head CT 02/08/20 12:21 IMPRESSION: NO ACUTE INTRACRANIAL FINDINGS. EVIDENCE OF ACUTE STROKE: NO. Chest X-Ray 02/08/20 14:46 IMPRESSION: NO ACUTE FINDINGS. Carotid Doppler Study 02/11/20 00:00 IMPRESSION: NO HEMODYNAMICALLY SIGNIFICANT STENOSIS. Assessment and Plan - Diagnosis (1) Syncope Qualifiers: Syncope type: unspecified Qualified Code(s): R55 - Syncope and collapse Is this a current diagnosis for this admission?: Yes Plan: Stable. No recurrence. Denies any syncope or presyncope, lightheadedness or chest palpitation. Most likely due to orthostatic hypotension. Endorses low p.o. intake. Denies any history of seizure disorder. Denies any history of arrhythmias. EKG sinus rhythm. Troponins negative. CT head negative. Continue volume resuscitation guided by volume status, telemetry, fall, seizure and aspiration precautions. 02/10/2020 Due to dehydration and orthostatic hypotension most likely No syncope since admission CT head on admission negative for acute findings Carotid PVL pending 02/11/2020 Carotid PVL has been done but the results are not back yet No further syncope Counseled extensively on making sure she is well-hydrated and receives adequate nutrition at home 02/12/2020 IV fluids and oral fluids continue Carotid PVL does not show significant stenoses (2) Right arm cellulitis Is this a current diagnosis for this admission?: Yes Plan: 02/11/2020 Infection appeared this morning with 1 cm pustule on right posterior forearm. Start Bactrim p.o. twice daily, confirmed with patient she has no antibiotic allergies No systemic signs or symptoms of infection, only mild localized erythema/edema/tenderness 02/12/2020 Cellulitis actually looks worse today Bactrim stopped, vancomycin IV started Fever noted, ordered blood cultures (3) Hypoglycemia Is this a current diagnosis for this admission?: Yes (4) Malnutrition Qualifiers: Malnutrition type: protein-calorie malnutrition Protein-calorie malnutrition severity: severe Qualified Code(s): E43 - Unspecified severe protein-calorie malnutrition Is this a current diagnosis for this admission?: Yes (5) Orthostasis Is this a current diagnosis for this admission?: Yes (6) Tobacco abuse Is this a current diagnosis for this admission?: Yes (7) Chest pain Is this a current diagnosis for this admission?: Yes (8) Depression Is this a current diagnosis for this admission?: Yes (9) HTN (hypertension) Is this a current diagnosis for this admission?: Yes (10) Migraine Is this a current diagnosis for this admission?: Yes - Time Time Spent with patient: 25-34 minutes Medications reviewed and adjusted accordingly: Yes Anticipated Discharge Disposition: Home, Self Care Anticipated Discharge Timeframe: within 72 hours - Inpatient Certification Based on my medical assessment, after consideration of the patient's comorbidities, presenting symptoms, or acuity I expect that the services needed warrant INPATIENT care.: Yes I certify that my determination is in accordance with my understanding of Medicare's requirements for reasonable and necessary INPATIENT services [42 CFR 412.3e].: Yes Medical Necessity: Significant Comorbidiites Make Outpatient Treatment Too Risky, Need Close Monitoring Due to Risk of Patient Decompensation, Need For IV Fluids, Need for IV Antibiotics, Risk of Complication if Not Cared For in Hospital, Risk of Diagnosis Which Will Require Inpatient Eval/Care/Monitoring
[2020-02-12] MEDS: VANCOMYCIN HCL 1,000 MG in DEXTROSE 5%-WATER 250 ML IV SCH (15:03)
[2020-02-12] MEDS: AMITRIPTYLINE HCL 75 MG TABLET PO SCH (22:06)
[2020-02-13] MEDS: GABAPENTIN 400 MG CAPSULE PO SCH ×5 (00:25→23:35)
[2020-02-13] MEDS ORDERED: MAGNESIUM HYDROXIDE SUSP 30 ML UDCUP PO PRN (02:09)
[2020-02-13] MEDS: DEXTROSE 5%-NORMAL SALINE 1,000 ML IV PRN ×2 (03:12→12:08)
[2020-02-13] MEDS: PANTOPRAZOLE SODIUM 40 MG TABLET.DR PO SCH (06:43)
[2020-02-13] MEDS: MORPHINE SULFATE IR 15 MG TABLET PO PRN ×2 (06:45→22:51)
[2020-02-13 09:48] LABS: ABSOLUTE EOSINOPHILS # (AUTO) 0.1 10^3/uL (0.0-0.6); ABSOLUTE LYMPHOCYTES (AUTO) 1.6 10^3/uL (0.5-4.7); ABSOLUTE MONOCYTES (AUTO) 0.8 10^3/uL (0.1-1.4); BASOPHILS % (AUTO) 0.9 % (0-2); EOSINOPHILS % (AUTO) 1.6 % (0-6); HEMATOCRIT 34.1 % (36.0-47.0); HEMOGLOBIN 11.1 g/dL (12.0-15.5); LYMPHOCYTES % (AUTO) 28.9 % (13-45); MEAN CORPUSCULAR HEMOGLOBIN 28.6 pg (27.0-33.4); MEAN CORPUSCULAR HGB CONC 32.5 g/dL (32.0-36.0); MEAN CORPUSCULAR VOLUME 88 fl (80-97); MONOCYTES % (AUTO) 14.1 % (3-13); PLATELET COUNT 162 10^3/uL (150-450); RED BLOOD COUNT 3.87 10^6/uL (3.72-5.28); RED CELL DISTRIBUTION WIDTH 19.1 % (11.5-14.0); SEGMENTED NEUTROPHILS % (AUTO) 54.5 % (42-78); TOTAL CELLS COUNTED % (AUTO) 100 %; WHITE BLOOD COUNT 5.4 10^3/uL (4.0-10.5)
[2020-02-13 10:14] LABS: ANION GAP 7 (5-19); BLOOD UREA NITROGEN 7 mg/dL (7-20); CALCIUM 9.5 mg/dL (8.4-10.2); CARBON DIOXIDE 25 mmol/L (22-30); CHLORIDE 107 mmol/L (98-107); GLUCOSE 76 mg/dL (75-110); POTASSIUM 4.3 mmol/L (3.6-5.0)
[2020-02-13] MEDS: FAMOTIDINE 20 MG TABLET PO SCH ×2 (10:23→22:48)
[2020-02-13] MEDS: MIRTAZAPINE 15 MG TABLET PO SCH (10:24)
[2020-02-13] MEDS: DICYCLOMINE HCL 10 MG CAPSULE PO SCH ×4 (10:24→22:48)
[2020-02-13] MEDS: CYANOCOBALAMIN (VITAMIN B-12) 1,000 MCG TABLET PO SCH (10:24)
[2020-02-13] MEDS: ENOXAPARIN SODIUM INJ 40 MG/0.4 ML DISP.SYRIN SUBCUT SCH (10:25)
[2020-02-13] MEDS: PRIMIDONE 50 MG TABLET PO SCH (10:26)
[2020-02-13] MEDS: LIDOCAINE 5% (700 MG) TRANSDERMAL ADH..PATCH TP SCH (10:29)
[2020-02-13] MEDS: MULTIVITAMINS W-IRON TABLET, CHEWABLE PO SCH (10:31)
[2020-02-13] MEDS: NICOTINE 14 MG/24 HR PATCH.TD24 TD SCH (10:32)
[2020-02-13] MEDS: VANCOMYCIN HCL 1,000 MG in DEXTROSE 5%-WATER 250 ML IV SCH (15:02)
--- NOTE | 2020-02-13 18:39 | PDOC PROGRESS REPORT ---
Subjective Progress Note for:: 02/13/20 Subjective:: 02/10/2020 Patient very anxious and speaking quickly during encounter today. She repeatedly makes statements about wanting more narcotics stating that if she only had one really big dose of IV morphine that her pain would be manageable thereafter. She told me she takes oral morphine 3 times a day and then another dose of as needed morphine for breakthrough however this PRN dose is not listed in her home medications at all. I have asked the pharmacist to look back at her filled prescriptions to determine if this is what she takes at home. He also made multiple conflicting statements to me about her smoking history stating she quit 17 years ago, then quit 4 years ago, then states she continues to smoke but only off and on in certain situations, then states she continues to smoke daily. I am very unsure how much she smokes and for how long. She has been refusing a nicotine patch. I will not increase her narcotics but she can have her home dose narcotics once we verify these. Dietitian consult was placed by physician yesterday and we are waiting on them to see the patient. Can probably go home tomorrow. 02/11/2020 Patient showed me today her right posterior forearm which has some erythema/edema/tenderness which is new from yesterday. She states that EMS emergently placed an IV in her right forearm and since then it has been somewhat painful but today it has become more inflamed. On exam, she has a small superficial pustule and redness of her forearm consistent with cellulitis. We will start her on Bactrim twice daily oral and see if this clears up by tomorrow or at least improves. If patient shows improvement in her cellulitis by t omorrow, she can be discharged home. Other than the aforementioned cellulitis complaints and her chronic pain, she has no new complaints today. 02/12/2020 Right arm looks worse today and is more swollen and erythematous. She does not seem to have responded to the Bactrim and we will need to obtain a PVL of the RUE to rule out DVT. I have also stopped Bactrim and replace this with vancomycin IV. If she has a DVT, we will start appropriate anticoagulation. I believe her arm is more consistent with a cellulitis than the clotting problem. Patient states everything else is going fine and her pain is controlled at this time. Other than her chronic pain she has no new complaints. 02/13/2020 Right arm cellulitis seems to be improving but is not quite as far along as I would like, still rather erythematous, significantly less edematous though. Continue vancomycin IV today. She can likely transition home tomorrow on oral clindamycin to complete a 7 to 10-day course. PVL right upper extremity was reportedly canceled overnight although nursing and physicians were not told about this. Ultrasound has been done to rule out DVT but the results are not back yet. Patient states she is drinking several of the Ensure clears per day and likes them quite a bit. She will need to drink at least 4 of these per day after discharge to maintain her blood sugar and blood volume in addition to drinking extra fluids. Can probably be discharged tomorrow if arm improves and she does not have a clot on the ultrasound. Reason For Visit: SYNCOPE,ORTHOSTASIS Physical Exam Vital Signs: Temp Pulse Resp BP Pulse Ox 98.5 F 90 20 149/66 H 100 02/13/20 15:17 02/13/20 15:17 02/13/20 15:17 02/13/20 15:17 02/13/20 15:17 Intake & Output 02/12/20 02/13/20 02/14/20 06:59 06:59 06:59 Intake Total 3250 3100 1133 Output Total 2750 5200 1900 Balance 500 -2100 -767 Weight 50.6 kg 52.7 kg General appearance: PRESENT: no acute distress, well-developed, well-nourished Head exam: PRESENT: atraumatic, normocephalic Eye exam: PRESENT: conjunctiva pink Mouth exam: PRESENT: moist Respiratory exam: PRESENT: clear to auscultation mil[place]. ABSENT: rales, rhonchi, wheezes Cardiovascular exam: PRESENT: RRR. ABSENT: diastolic murmur, rubs, systolic murmur GI/Abdominal exam: PRESENT: normal bowel sounds, soft. ABSENT: distended, guarding, mass, organolmegaly, rebound, tenderness Extremities exam: PRESENT: tenderness - Right upper extremity from elbow to hand with slowly resolving erythema/edema/tenderness, improved from yesterday Musculoskeletal exam: PRESENT: ambulatory Neurological exam: PRESENT: alert, awake, oriented to person, oriented to place, oriented to time, oriented to situation Psychiatric exam: PRESENT: appropriate affect, normal mood Skin exam: PRESENT: dry, intact, warm Results Laboratory Results: 02/13/20 09:07 02/13/20 09:07 02/13/20 02/13/20 09:07 09:07 WBC 5.4 RBC 3.87 Hgb 11.1 L Hct 34.1 L MCV 88 MCH 28.6 MCHC 32.5 RDW 19.1 H Plt Count 162 Seg Neutrophils % 54.5 Sodium 139.0 Potassium 4.3 Chloride 107 Carbon Dioxide 25 Anion Gap 7 BUN 7 Creatinine 0.68 Est GFR ( Amer) > 60 Glucose 76 Calcium 9.5 02/08/20 02/08/20 11:42 11:42 Creatine Kinase 127 CK-MB (CK-2) 0.88 Troponin I < 0.012 Impressions: Head CT 02/08/20 12:21 IMPRESSION: NO ACUTE INTRACRANIAL FINDINGS. EVIDENCE OF ACUTE STROKE: NO. Chest X-Ray 02/08/20 14:46 IMPRESSION: NO ACUTE FINDINGS. Carotid Doppler Study 02/11/20 00:00 IMPRESSION: NO HEMODYNAMICALLY SIGNIFICANT STENOSIS. Assessment and Plan - Diagnosis (1) Syncope Qualifiers: Syncope type: unspecified Qualified Code(s): R55 - Syncope and collapse Is this a current diagnosis for this admission?: Yes Plan: Stable. No recurrence. Denies any syncope or presyncope, lightheadedness or chest palpitation. Most likely due to orthostatic hypotension. Endorses low p.o. intake. Denies any history of seizure disorder. Denies any history of arrhythmias. EKG sinus rhythm. Troponins negative. CT head negative. Continue volume resuscitation guided by volume status, telemetry, fall, seizure and aspiration precautions. 02/10/2020 Due to dehydration and orthostatic hypotension most likely No syncope since admission CT head on admission negative for acute findings Carotid PVL pending 02/11/2020 Carotid PVL has been done but the results are not back yet No further syncope Counseled extensively on making sure she is well-hydrated and receives adequate nutrition at home 02/12/2020 IV fluids and oral fluids continue Carotid PVL does not show significant stenoses (2) Right arm cellulitis Is this a current diagnosis for this admission?: Yes Plan: 02/11/2020 Infection appeared this morning with 1 cm pustule on right posterior forearm. Start Bactrim p.o. twice daily, confirmed with patient she has no antibiotic allergies No systemic signs or symptoms of infection, only mild localized eryt vinit[place]/edema/tenderness 02/12/2020 Cellulitis actually looks worse today Bactrim stopped, vancomycin IV started Fever noted, ordered blood cultures 02/12/2022 Blood cultures negative Continue IV vancomycin, plan to transition to clindamycin oral to complete 7 to 10-day course at discharge Improving PVL to rule out DVT right upper extremity is pending (3) Hypoglycemia Is this a current diagnosis for this admission?: Yes (4) Malnutrition Qualifiers: Malnutrition type: protein-calorie malnutrition Protein-calorie malnutrition severity: severe Qualified Code(s): E43 - Unspecified severe protein-calorie malnutrition Is this a current diagnosis for this admission?: Yes (5) Orthostasis Is this a current diagnosis for this admission?: Yes (6) Tobacco abuse Is this a current diagnosis for this admission?: Yes (7) Chest pain Is this a current diagnosis for this admission?: Yes (8) Depression Is this a current diagnosis for this admission?: Yes (9) HTN (hypertension) Is this a current diagnosis for this admission?: Yes (10) Migraine Is this a current diagnosis for this admission?: Yes - Time Time Spent with patient: 25-34 minutes Medications reviewed and adjusted accordingly: Yes Anticipated Discharge Disposition: Home, Self Care Anticipated Discharge Timeframe: within 24 hours
--- NOTE | 2020-02-13 19:21 | RADIOLOGY REPORT (SQ) ---
EXAM DESCRIPTION: VENOUS UNILATERAL UPPER IMAGES COMPLETED DATE/TIME: 02/13/2020 7:08 pm REASON FOR STUDY: Right arm swelling L03.113 CELLULITIS OF RIGHT UPPER LIMB COMPARISON: None. TECHNIQUE: Dynamic and static lombardo scale and color images acquired of the right arm venous system. S elected spectral images acquired with additional compression and augmentation maneuvers. Images store d on PACS. LIMITATIONS: None. FINDINGS: INTERNAL JUGULAR VEIN: Normal phasicity, compression, augmentation. No visualized echogeni c material on lombardo scale. No defects on color images. Comparison opposite side normal. SUBCLAVIAN VEIN: Normal compression, augmentation. No visualized echogenic material on lombardo scale. No defects on color images. AXILLARY VEIN: Normal compression, augmentation. No visualized echogenic material on lombardo scale. No d efects on color images. BRACHIAL VEIN: Normal compression, augmentation. No visualized echogenic material on lombardo scale. No d efects on color images. BASILIC VEIN: Normal compression, augmentation. No visualized echogenic material on lombardo scale. No de fects on color images. CEPHALIC VEIN: Normal compression, augmentation. No visualized echogenic material on lombardo scale. No d efects on color images. OTHER: No other significant finding. IMPRESSION: NO EVIDENCE DVT OR SVT IN THE RIGHT ARM. TECHNICAL DOCUMENTATION: JOB ID: [id number] [employer]- All Rights Reserved Reading location - IP/workstation name: [email or web address]
[2020-02-13] MEDS ORDERED: VANCOMYCIN HCL 1,000 MG in DEXTROSE 5%-WATER 250 ML IV SCH (22:00)
[2020-02-13] MEDS: AMITRIPTYLINE HCL 75 MG TABLET PO SCH (22:48)
[2020-02-14] MEDS: PANTOPRAZOLE SODIUM 40 MG TABLET.DR PO SCH (05:27)
[2020-02-14] MEDS: GABAPENTIN 400 MG CAPSULE PO SCH (05:27)
[2020-02-14 06:13] VITALS: BP 129/68
[2020-02-14] MEDS: MORPHINE SULFATE IR 15 MG TABLET PO PRN (07:38)
[2020-02-14] MEDS: DICYCLOMINE HCL 10 MG CAPSULE PO SCH (07:38)
--- NOTE | 2020-02-14 12:04 | PDOC DISCHARGE SUMMARY ---
Impression - Admit/DC Date/PCP Admission Date/Primary Care Provider: 02/08/20 16:21 CHARO WYNN NP Discharge Date: 02/14/20 - Assessment Summary: (1) Syncope Qualifiers: Syncope type: unspecified Qualified Code(s): R55 - Syncope and collapse Is this a current diagnosis for this admission?: Yes Plan: Stable. No recurrence. Denies any syncope or presyncope, lightheadedness or chest palpitation. Most likely due to orthostatic hypotension. Endorses low p.o. intake. Denies any history of seizure disorder. Denies any history of arrhythmias. EKG sinus rhythm. Troponins negative. CT head negative. Continue volume resuscitation guided by volume status, telemetry, fall, seizure and aspiration precautions. 02/10/2020 Due to dehydration and orthostatic hypotension most likely No syncope since admission CT head on admission negative for acute findings Carotid PVL pending 02/11/2020 Carotid PVL has been done but the results are not back yet No further syncope Counseled extensively on making sure she is well-hydrated and receives adequate nutrition at home 02/12/2020 IV fluids and oral fluids continue Carotid PVL does not show significant stenoses 02/14/2020-CT head is negative for acute pathology. Carotid Doppler is negative for a stenosis. Syncope is resolved. (2) Right arm cellulitis Is this a current diagnosis for this admission?: Yes Plan: 02/11/2020 Infection appeared this morning with 1 cm pustule on right posterior forearm. Start Bactrim p.o. twice daily, confirmed with patient she has no antibiotic allergies No systemic signs or symptoms of infection, only mild localized erythema/edema/tenderness 02/12/2020 Cellulitis actually looks worse today Bactrim stopped, vancomycin IV started Fever noted, ordered blood cultures 02/12/2022 Blood cultures negative Continue IV vancomycin, plan to transition to clindamycin oral to complete 7 to 10-day course at discharge Improving PVL to rule out DVT right upper extremity is pending 02/14/2020-right upper arm Doppler is negative for blood clots. Cellulitis associated with erythema and swelling resolving. Presently on IV vancomycin, patient is going home on p.o. clindamycin 300 mg 4 times daily for 7 days. (3) Hypoglycemia Is this a current diagnosis for this admission?: Yes (4) Malnutrition Qualifiers: Malnutrition type: protein-calorie malnutrition Protein-calorie malnutrition severity: severe Qualified Code(s): E43 - Unspecified severe protein-calorie malnutrition Is this a current diagnosis for this admission?: Yes (5) Orthostasis Is this a current diagnosis for this admission?: Yes (6) Tobacco abuse Is this a current diagnosis for this admission?: Yes (7) Chest pain Is this a current diagnosis for this admission?: Yes (8) Depression Is this a current diagnosis for this admission?: Yes (9) HTN (hypertension) Is this a current diagnosis for this admission?: Yes (10) Migraine Is this a current diagnosis for this admission?: Yes - Time Time Spent with patient: 25-34 minutes Medications reviewed and adjusted accordingly: Yes Anticipated Discharge Disposition: Home, Self Care Anticipated Discharge Timeframe: within 24 hours - Additional Information Discharge Diet: Regular Discharge Activity: Activity As Tolerated Referrals: CHARO WYNN, [facility] [facility] [Primary Care Provider] - Follow up as needed Prescriptions: Clindamycin HCl 300 mg PO QID 7 Days #28 capsule Dextrose [Dex4 Glucose] 15 gm PO QIDP PRN 10 Days #60 liquid PRN Reason: Home Medications: Amitriptyline HCl [Elavil 75 mg Tablet] 75 mg PO QHS 02/08/20 Dicyclomine HCl [Bentyl 10 mg Capsule] 10 mg PO QID 02/08/20 Gabapentin 800 mg PO QID 02/08/20 Mirtazapine [Remeron 15 mg Tablet] 15 mg PO DAILY 02/08/20 Morphine Sulfate [Morphine Ir 15 mg Tablet] 15 mg PO TIDP PRN 02/08/20 Primidone [Mysoline 50 mg Tablet] 100 mg PO DAILY 02/08/20 Cyanocobalamin (Vitamin B-12) [Vitamin B-12 1000 mcg Tablet] 1,000 mcg PO DAILY 02/09/20 Lansoprazole 30 mg PO DAILY 02/09/20 Pediatric Multivitamin No.42 [Flintstones] 2 each PO DAILY 02/09/20 Clindamycin HCl 300 mg PO QID 7 Days #28 capsule 02/14/20 Dextrose [Dex4 Glucose] 15 gm PO QIDP PRN 10 Days #60 liquid 02/14/20 History of Present Illiness History of Present Illness: WILBUR LOWERY is a 64 year old female Hypertension, weight loss, status post gastric bypass surgery in 2010, status post reverse gastric bypass surgery 2015, hypertension, depression, brought to ED after episode of syncope. As per ED note patient was found in the yard by son unresponsive laying on the ground, this was called and patient was brought to ED. CT head on admission was negative. Troponin and EKG unremarkable. Was noted to be orthostatic positive and mild hypoglycemia.. On my encounter patient currently resting in bed no apparent distress, alert and oriented x3, answering questions appropriately, denies any focal neurological symptoms, does not recall any events preceding syncope, does remember his case calling her to get up, denies any history of arrhythmia, seizure disorder, patient had gastric bypass in 2010, due to excessive weight loss patient had reverse gastric bypass surgery in 2014, however patient has been having low p.o. tolerance and has not been able to regain her weight, denies any personal or family history of malignancy, denies any melena, night sweats. Patient is stating that she is not taking in much fluid and her appetite is low and cannot tolerate much p.o. intake, she is small amount of fluid however she feels full right away, she has not taking vitamins and has not been seen by the dietitian. Denies any fever, chills, nausea, vomiting, diarrhea, constipation or any urinary symptoms. Hospital Course Hospital Course: 02/10/2020 Patient very anxious and speaking quickly during encounter today. She repeatedly makes statements about wanting more narcotics stating that if she only had one really big dose of IV morphine that her pain would be manageable thereafter. She told me she takes oral morphine 3 times a day and then another dose of as needed morphine for breakthrough however this PRN dose is not listed in her home medications at all. I have asked the pharmacist to look back at her filled prescriptions to determine if this is what she takes at home. He also made multiple conflicting statements to me about her smoking history stating she quit 17 years ago, then quit 4 years ago, then states she continues to smoke but only off and on in certain situations, then states she continues to smoke daily. I am very unsure how much she smokes and for how long. She has been refusing a nicotine patch. I will not increase her narcotics but she can have her home dose narcotics once we verify these. Dietitian consult was placed by physician yesterday and we are waiting on them to see the patient. Can probably go home tomorrow. 02/11/2020 Patient showed me today her right posterior forearm which has some erythema/edema/tenderness which is new from yesterday. She states that EMS emergently placed an IV in her right forearm and since then it has been somewhat painful but today it has become more inflamed. On exam, she has a small superficial pustule and redness of her forearm consistent with cellulitis. We will start her on Bactrim twice daily oral and see if this clears up by tomorrow or at least improves. If patient shows improvement in her cellulitis by tomorrow, she can be discharged home. Other than the aforementioned cellulitis complaints and her chronic pain, she has no new complaints today. 02/12/2020 Right arm looks worse today and is more swollen and erythematous. She does not seem to have responded to the Bactrim and we will need to obtain a PVL of the RUE to rule out DVT. I have also stopped Bactrim and replace this with vancomycin IV. If she has a DVT, we will start appropriate anticoagulation. I believe her arm is more consistent with a cellulitis than the clotting problem. Patient states everything else is going fine and her pain is controlled at this time. Other than her chronic pain she has no new complaints. 02/13/2020 Right arm cellulitis seems to be improving but is not quite as far along as I would like, still rather erythematous, significantly less edematous though. Continue vancomycin IV today. She can likely transition home tomorrow on oral clindamycin to complete a 7 to 10-day course. PVL right upper extremity was reportedly canceled overnight although nursing and physicians were not told about this. Ultrasound has been done to rule out DVT but the results are not back yet. Patient states she is drinking several of the Ensure clears per day and likes them quite a bit. She will need to drink at least 4 of these per day after discharge to maintain her blood sugar and blood volume in addition to drinking extra fluids. Can probably be discharged tomorrow if arm improves and she does not have a clot on the ultrasound. [id number] female admitted with syncope, orthostatic hypotension. Orthostatic hypotension is resolved. Syncopal symptoms resolved. Patient has persistent hypoglycemia blood sugar is 51 this morning. Patient is expressing desire to go home and follow-up with PCP. Given a prescription for glucose tablets. Right arm venous Doppler is negative for blood clots. Patient is going home on clindamycin 300 mg 4 times daily for 1 week. Physical Exam Vital Signs: Temp Pulse Resp BP Pulse Ox 98.3 F 75 16 129/68 H 100 02/14/20 08:52 02/14/20 08:52 02/14/20 08:52 02/14/20 08:52 02/14/20 08:52 Intake & Output 02/13/20 02/14/20 02/15/20 06:59 06:59 06:59 Intake Total 3100 2563 Output Total 5200 3900 Balance -2100 -1337 Weight 52.7 kg 52.7 kg General appearance: PRESENT: no acute distress, well-developed Head exam: PRESENT: atraumatic Eye exam: PRESENT: PERRLA Ear exam: PRESENT: normal external ear exam Teeth exam: PRESENT: poor dentation Neck exam: ABSENT: carotid bruit, JVD, lymphadenopathy, thyromegaly Respiratory exam: PRESENT: decreased breath sounds Cardiovascular exam: PRESENT: RRR. ABSENT: diastolic murmur, rubs, systolic murmur GI/Abdominal exam: PRESENT: normal bowel sounds, soft. ABSENT: distended, guarding, mass, organolmegaly, rebound, tenderness Rectal exam: PRESENT: deferred Extremities exam: PRESENT: full ROM, other - Right arm erythema and swelling is resolving.. ABSENT: calf tenderness, clubbing, pedal edema Neurological exam: PRESENT: alert, awake, oriented to person, oriented to place, oriented to time, oriented to situation, CN II-XII grossly intact. ABSENT: motor sensory deficit Psychiatric exam: PRESENT: appropriate affect, normal mood. ABSENT: homicidal ideation, suicidal ideation Results Laboratory Results: WBC 5.4 10^3/uL (4.0-10.5) 02/13/20 09:07 RBC 3.87 10^6/uL (3.72-5.28) 02/13/20 09:07 Hgb 11.1 g/dL (12.0-15.5) L 02/13/20 09:07 Hct 34.1 % (36.0-47.0) L 02/13/20 09:07 MCV 88 fl (80-97) 02/13/20 09:07 MCH 28.6 pg (27.0-33.4) 02/13/20 09:07 MCHC 32.5 g/dL (32.0-36.0) 02/13/20 09:07 RDW 19.1 % (11.5-14.0) H 02/13/20 09:07 Plt Count 162 10^3/uL (150-450) 02/13/20 09:07 Lymph % (Auto) 28.9 % (13-45) 02/13/20 09:07 [place] % (Auto) 14.1 % (3-13) H 02/13/20 09:07 Eos % (Auto) 1.6 % (0-6) 02/13/20 09:07 Baso % (Auto) 0.9 % (0-2) 02/13/20 09:07 Absolute Neuts (auto) 3.0 10^3/uL (1.7-8.2) 02/13/20 09:07 Absolute Lymphs (auto) 1.6 10^3/uL (0.5-4.7) 02/13/20 09:07 Absolute Monos (auto) 0.8 10^3/uL (0.1-1.4) 02/13/20 09:07 Absolute Eos (auto) 0.1 10^3/uL (0.0-0.6) 02/13/20 09:07 Absolute Basos (auto) 0.0 10^3/uL (0.0-0.2) 02/13/20 09:07 Seg Neutrophils % 54.5 % (42-78) 02/13/20 09:07 Sodium 139.0 mmol/L (137-145) 02/13/20 09:07 Potassium 4.3 mmol/L (3.6-5.0) 02/13/20 09:07 Chloride 107 mmol/L (98-107) 02/13/20 09:07 Carbon Dioxide 25 mmol/L (22-30) 02/13/20 09:07 Anion Gap 7 (5-19) 02/13/20 09:07 BUN 7 mg/dL (7-20) 02/13/20 09:07 Creatinine 0.68 mg/dL (0.52-1.25) 02/13/20 09:07 Est GFR ( Amer) > 60 (>60) 02/13/20 09:07 Est GFR (MDRD) Non-Af > 60 (>60) 02/13/20 09:07 Glucose 76 mg/dL (75-110) 02/13/20 09:07 POC Glucose 130 mg/dL (70-110) H 02/14/20 08:39 Hemoglobin A1c % 5.1 % (4.7-6.0) 02/09/20 05:14 Calcium 9.5 mg/dL (8.4-10.2) 02/13/20 09:07 Magnesium 2.0 mg/dL (1.6-2.3) 02/09/20 05:14 Total Bilirubin 0.3 mg/dL (0.2-1.3) 02/09/20 05:14 Direct Bilirubin 0.0 mg/dL (0.0-0.4) 02/09/20 05:14 Neonat Total Bilirubin Not Reportable 02/09/20 05:14 Neonat Direct Bilirubin Not Reportable 02/09/20 05:14 Neonat Indirect Bili Not Reportable 02/09/20 05:14 AST 26 U/L (14-36) 02/09/20 05:14 ALT 11 U/L (<35) 02/09/20 05:14 Alkaline Phosphatase 63 U/L (38-126) 02/09/20 05:14 Creatine Kinase 127 U/L (30-135) 02/08/20 11:42 CK-MB (CK-2) 0.88 ng/mL (<4.55) 02/08/20 11:42 Troponin I < 0.012 ng/mL 02/08/20 11:42 Total Protein 5.6 g/dL (6.3-8.2) L 02/09/20 05:14 Albumin 3.0 g/dL (3.5-5.0) L 02/09/20 05:14 Prealbumin 15.5 mg/dL (17.6-36.0) L 02/09/20 05:14 TSH 0.82 uIU/mL (0.47-4.68) 02/09/20 05:14 Urine Color YELLOW 02/08/20 15:15 Urine Appearance CLEAR 02/08/20 15:15 Urine pH 6.0 (5.0-9.0) 02/08/20 15:15 Ur Specific [place] 1.011 02/08/20 15:15 Urine Protein NEGATIVE mg/dL (NEGATIVE) 02/08/20 15:15 Urine Glucose (UA) NEGATIVE mg/dL (NEGATIVE) 02/08/20 15:15 Urine Ketones NEGATIVE mg/dL (NEGATIVE) 02/08/20 15:15 Urine Blood NEGATIVE (NEGATIVE) 02/08/20 15:15 Urine Nitrite NEGATIVE (NEGATIVE) 02/08/20 15:15 Urine Bilirubin NEGATIVE (NEGATIVE) 02/08/20 15:15 Urine Urobilinogen NEGATIVE mg/dL (<2.0) 02/08/20 15:15 Ur Leukocyte Esterase NEGATIVE (NEGATIVE) 02/08/20 15:15 Urine WBC (Auto) 0 /HPF 02/08/20 15:15 Urine RBC (Auto) 0 /HPF 02/08/20 15:15 Squamous Epi Cells Auto 1 /HPF 02/08/20 15:15 Urine Mucus (Auto) RARE /LPF 02/08/20 15:15 Urine Ascorbic Acid NEGATIVE (NEGATIVE) 02/08/20 15:15 Urine Opiates Screen UNCONFIRMED POSITIVE 02/08/20 15:15 Urine Methadone Screen NEGATIVE 02/08/20 15:15 Ur Barbiturates Screen UNCONFIRMED POSITIVE 02/08/20 15:15 Ur Phencyclidine Scrn NEGATIVE 02/08/20 15:15 Ur Amphetamines Screen NEGATIVE 02/08/20 15:15 U Benzodiazepines Scrn NEGATIVE 02/08/20 15:15 Urine Cocaine Screen NEGATIVE 02/08/20 15:15 U Marijuana (THC) Screen UNCONFIRMED POSITIVE 02/08/20 15:15 02/08/20 11:42 CK-MB (CK-2) 0.88 Troponin I < 0.012 Impressions: Head CT 02/08/20 12:21 IMPRESSION: NO ACUTE INTRACRANIAL FINDINGS. EVIDENCE OF ACUTE STROKE: NO. Chest X-Ray 02/08/20 14:46 IMPRESSION: NO ACUTE FINDINGS. Carotid Doppler Study 02/11/20 00:00 IMPRESSION: NO HEMODYNAMICALLY SIGNIFICANT STENOSIS. Venous Doppler Study 02/13/20 00:00 IMPRESSION: NO EVIDENCE DVT OR SVT IN THE RIGHT ARM. Plan Time Spent: Greater than 30 Minutes Stroke Is this a Stroke Patient?: No Acute Heart Failure - Is this a Heart Failure Patient?: No
[2020-02-14] MEDS ORDERED: VANCOMYCIN HCL 1,000 MG in DEXTROSE 5%-WATER 250 ML IV SCH (22:00)
== END 2020-02-14 09:30 | disposition home or self-care (01) ==
LOC: ER 11:38 → EH 16:21 → INTOOBSV 16:21 → 3S 18:15
PROVIDERS: ADMIT Internal Medicine; ATTEND Internal Medicine
DX: I95.1 Orthostatic hypotension (principal); L03.113 Cellulitis of right upper limb; E86.0 Dehydration; E16.2 Hypoglycemia, unspecified; E43 Unspecified severe protein-calorie malnutrition; F17.200 Nicotine dependence, unspecified, uncomplicated; R07.9 Chest pain, unspecified; F32.9 Major depressive disorder, single episode, unspecified; I10 Essential (primary) hypertension; G43.909 Migraine, unspecified, not intractable, without status migrainosus; Z79.899 Other long term (current) drug therapy; Z98.84 Bariatric surgery status; K21.9 Gastro-esophageal reflux disease without esophagitis; K75.9 Inflammatory liver disease, unspecified; K44.9 Diaphragmatic hernia without obstruction or gangrene; M06.9 Rheumatoid arthritis, unspecified; Z88.8 Allergy status to other drugs, medicaments and biological substances; Z88.6 Allergy status to analgesic agent; Z91.030 Bee allergy status
CPT/HCPCS: 93005; 99285; 96360; 51701; 36415 ×4; 87040; 82553; 82962 ×7; 82550; 83735; 84443; 85025 ×3; 80048; 80053 ×2; 81001; 84484; 80307; 83036; 84134; 93971; 93880; 71045; 70450; 93010; G0378 ×8; A9270 ×49; J2270 ×2; J1650 ×5; J7060 ×2; J7042 ×6; J7030; J3370 ×2; J3490

== ENCOUNTER 2020-03-03 07:09 | Day surgery (SDC) | payer MEDICARE ==
[2020-03-03] MEDS ORDERED: PROPOFOL INJ 200 MG/20 ML VIAL IV ONE ×2 (07:24→07:59)
--- NOTE | 2020-03-03 08:58 | Operative Report ---
Operative Report DATE OF SURGERY: 03/03/20 Operative Report: The risk, benefits and alternatives of the procedure including the risk of bleeding, perforation requiring surgery have been explained to the patient in detail and informed consent has been obtained. Patient is taken back to the endoscopy suite and placed in the left, lateral decubital position. Timeout was called. Propofol medication is administered. A rectal examination is done which did not reveal any masses, tears or fissures. An Olympus videoscope was introduced into the patient's colon. The scope was then carefully advanced all the way to the cecum. The cecum was identified by the usual anatomical landmarks including the ileocecal valve as well as the appendiceal office. Photodocumentation is obtained. The scope was then sequentially pulled back via the various segments of the colon including the ascending colon, hepatic flexure, transverse colon, splenic flexure, descending colon and finally into the rectosigmoid portions of the colon. Retroflexion maneuver is performed. The risks benefits and alternatives of the procedure explained to the patient in detail and informed consent is obtained.A GIF Olympus video scope was inserted into the patient's mouth and hypopharynx, the esophagus is identified intubated and insufflated ,the scope was then advanced through the esophagus stomach and duodenum, retroflexion maneuver is done, the esophagus stomach and first and second portions of the duodenum examined PREOPERATIVE DIAGNOSIS: Weight loss, change in bowel habits, blood in stool POSTOPERATIVE DIAGNOSIS: Right hand; inflammation status post biopsy. Gastritis status post biopsy. No evidence of any mass obstruction or lesion in the colon. No ulceration noted OPERATION: Colonoscopy with biopsy. EGD with biopsy SURGEON: BARBER SHANKS ANESTHESIA: LMAC TISSUE REMOVED OR ALTERED: As noted above. COMPLICATIONS: None. ESTIMATED BLOOD LOSS: None. INTRAOPERATIVE FINDINGS: As noted above. PROCEDURE: Patient tolerated the procedure well. No immediate postprocedure complications are noted. Patient is discharged in good condition. Discharge date 03/03/2020. Discharge diet: Regular. Discharge activity: Regular. 2 to 3-week follow-up to discuss findings. Patient is instructed to call the office or proceed to the emergency room should there be any further problems or questions. Wait on the pathology.
[2020-03-03 09:30] VITALS: BP 132/68
== END 2020-03-03 10:00 | disposition home or self-care (01) ==
LOC: END 07:09
PROVIDERS: ATTEND Internal Medicine Gastroenterology
DX: K52.9 Noninfective gastroenteritis and colitis, unspecified (principal); K31.9 Disease of stomach and duodenum, unspecified; R63.4 Abnormal weight loss; K92.1 Melena; Z87.891 Personal history of nicotine dependence; J44.9 Chronic obstructive pulmonary disease, unspecified; I10 Essential (primary) hypertension; E11.9 Type 2 diabetes mellitus without complications; Z88.8 Allergy status to other drugs, medicaments and biological substances; Z88.5 Allergy status to narcotic agent; Z03.818 Encounter for observation for suspected exposure to other biological agents ruled out
CPT/HCPCS: 43239; 45380; 82962; 88305 ×2; 00813; U0003; J2704; C9803; 813; 87635